=== PATIENT | female | born 1935 | race Caucasian/White ===

== ENCOUNTER 2017-12-20 18:17 | Emergency (ER) | payer MEDICARE, OTHER ==
[~2017-12-20] VITALS: Ht 160 cm; Wt 67.1 kg
[~2017-12-20 18:17] MED LIST: AMLODIPINE BESYL5 MG PO; ASPIRIN EC81 MG PO; DAILY VITAMIN1 EAC2 PO; LEVOTHYROXINE88 MCG PO; MAGNESIUM OXID400 MG PO; OMEGA-31000 MG PO; OMEPRAZOLE20 MG PO; POTASSIUM CHLO10 MEQ PO; SIMVASTATIN20 MG PO; VITAMIN D-32000 UNIT PO
== END 2017-12-20 21:49 | disposition home or self-care (01) ==
LOC: ED 18:17
DX: K52.9 Noninfective gastroenteritis and colitis, unspecified (principal); I10 Essential (primary) hypertension; Z87.891 Personal history of nicotine dependence; Z88.8 Allergy status to other drugs, medicaments and biological substances; Z79.82 Long term (current) use of aspirin; Z79.899 Other long term (current) drug therapy
CPT/HCPCS: 80053; 81001; 85025; 96360; 96361; 99284; J7040

== ENCOUNTER 2017-12-31 19:26 | Inpatient (IN) | payer MEDICARE, OTHER ==
[~2017-12-31] VITALS: Ht 160 cm; Wt 69.1 kg
--- OUTSIDE RECORDS SUMMARY | ~2017-12-31 | XMS | Clinical Summary ---
Demographics + + + | Address | [address] | | | [place] [address] | + + + | Home Phone | | + + + | Preferred Language | Unknown | + + + | Marital Status | | + + + | Judaism Affiliation | 1041 | + + + | Race | Unknown | + + + | Ethnic Group | Unknown | + + + Author + + + | Author | [facility] | | | and [place] | + + + | Organization | [facility] | | | and [place] | + + + | Address | Unknown | + + + | Phone | Unavailable | + + + Support + + + + + | Name | Relationship | Address | Phone | + + + + + | Ana Terrazas | ECON | [address] | | | | | [place] [address] | | + + + + + Care Team Providers + +------+ + | Care Manager Product Name | Role | Phone | + [...] | | | + + +--------+---------+------+------+-------+ | [place] 3 1000 MG | Take 1,000 mg [...] | | tissue, and skin, noseProblem 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
--- OUTSIDE RECORDS SUMMARY | ~2017-12-31 | XMS | Clinical Summary ---
Demographics + + + | Address | [address] | | | [place] [address] | + + + | Home Phone | | + + + | Preferred Language | Unknown | + + + | Marital Status | | + + + | Confucianism Affiliation | 1041 | + + + | Race | Unknown | + + + | Ethnic Group | Unknown | + + + Author + + + | Author | [facility] | | | and [place] | + + + | Organization | [facility] | | | and [place] | + + + | Address | Unknown | + + + | Phone | Unavailable | + + + Support + + + + + | Name | Relationship | Address | Phone | + + + + + | Ana Terrazas | ECON | [address] | | | | | [place] [address] | | + + + + + Care Team Providers + +------+ + | Care Supervisory Cbp Officer Name | Role | Phone | [...] | | | + + +--------+---------+------+------+-------+ | [place] 3 1000 MG | Take 1,000 mg [...] | | tissue, and skin, 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
--- OUTSIDE RECORDS SUMMARY | ~2017-12-31 | XMS | Clinical Summary ---
Demographics + + + | Address | [address] | | | [place] [address] | + + + | Home Phone | | + + + | Preferred Language | Unknown | + + + | Marital Status | Single | + + + | Methodist Affiliation | Unknown | + + + [...] Team Providers + +------+ + | Care Social Sciences Professor Name | Role | Phone | + +------+ + | No Pcp Per Patient | PP | Unavailable | + +------+ + Source Comments TON is fully live on both [facility] and [facility] InPatient.[facility] Allergies No Known Allergies Current Medications [...] | | | + +--------+ +--------+-------+---------+ | [facility] | [facility] | xxxxxxxxx | Agency | | | [...] | Self | [birth year] | Home: | [address] | | | al/Fam | | 1935 | +- | [place] | | | [place] | | | [address] | | + +--------+ +--------+ + + | ETHEL SANFORD | Medica | Self | [birth year] | Home: | [address] | | | re | | 1935 | +- | [place] | | | Recurr | | | [address] | | | | ing | | | | | + +--------+ +--------+ + +"
--- OUTSIDE RECORDS SUMMARY | ~2017-12-31 | XMS | Clinical Summary ---
Demographics + + + | Address | [address] | | | [place] [address] | + + + | Home Phone | | + + + | Preferred Language | Unknown | + + + | Marital Status | | + + + | Jehovah'S Witness Affiliation | 1041 | + + + | Race | Unknown | + + + | Ethnic Group | Unknown | + + + Author + + + | Author | [facility] | | | and [place] | + + + | Organization | 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
--- OUTSIDE RECORDS SUMMARY | ~2017-12-31 | XMS | Clinical Summary ---
Demographics + + + | Address | [address] | | | [place] [address] | + + + | Home Phone [...] Team Providers + +------+ + | Care Scientific Director Name | Role | Phone | [...] + +-------+---------+------+------+-------+ Active Problems Not on file Social History + +-------+ +--------+------+ | Tobacco [...] filefrom Last 3 Months Insurance + +--------+ +------+-------+ + | Payer | Benefi | Subscriber | Type | Phone | Address | | | t Plan | ID | | | | | | / | | | | | | | Group | | | | | + +--------+ +------+-------+ + | MEDICARE | MEDICA | [id number] | | | [address] | | | RE | | | | [place] [phone] | | | IP-OP | | | | | + +--------+ +------+-------+ + | [facility] | YELLOW | [phone] | | | | | PLANS | [...] | Self | [birth year] | Home: | [address] | | | al/Fam | | 7 | [phone] | [place] [address] | | | [place] | | | 0 | | + +--------+ +--------+ + +
--- OUTSIDE RECORDS SUMMARY | ~2017-12-31 | XMS | Clinical Summary ---
Demographics + + + | Address | [address] | | | [place] [address] | + + + | Home Phone | | + + + | Preferred Language | Unknown | + + + | Marital Status | Single | + + + | Mandaen Affiliation | Unknown | + + + [...] Team Providers + +------+ + | Care Forestry Crew Chief Name | Role | Phone | + +------+ + | No Pcp Per Patient | PP | Unavailable | + +------+ + Source Comments TON is fully live on both [facility] and [facility] InPatient.[facility] Allergies No Known Allergies Current [...] | | | + +--------+ +--------+-------+---------+ | [facility] | [facility] | xxxxxxxxx | Agency | | | [...] | Self | [birth year] | Home: | [address] | | | al/Fam | | 1935 | +- | [place] | | | [place] | | | [address] | | + +--------+ +--------+ + + | ETHEL SANFORD | Medica | Self | [birth year] | Home: | [address] | | | re | | 1935 | +- | [place] | | | Recurr | | | [address] | | | | ing | | | | | + +--------+ +--------+ + +"
--- OUTSIDE RECORDS SUMMARY | ~2017-12-31 | XMS | Clinical Summary ---
Demographics + + + | Address | [address] | | | [place] [address] | + + + | Home Phone | | + + + | Preferred Language | Unknown | + + + | Marital Status | Single | + + + | Orthodox Affiliation | Unknown | + + + [...] Team Providers + +------+ + | Care Photocopy Operator Name | Role | Phone | + [...] +------+-------+ + | MEDICARE | MEDICA | [id number] | | | [address] | | | RE | | | | [place] [phone] | | | IP-OP | | | | | + +--------+ +------+-------+ + | [facility] | YELLOW | [phone] | | | | | PLANS | [...] | Self | [birth year] | Home: | [address] | | | al/Fam | | 7 | [phone] | [place] [address] | | | [place] | | | 0 | | + +--------+ +--------+ + +
--- OUTSIDE RECORDS SUMMARY | ~2017-12-31 | XMS | Clinical Summary ---
Demographics + + + | Address | [address] | | | [place] [address] | + + + | Home Phone | | + + + | Preferred Language | Unknown | + + + | Marital Status | Single | + + + | Yarsanism Affiliation | Unknown | + + + [...] Team Providers + +------+ + | Care Abatement Worker Name | Role | Phone | + +------+ + | No Pcp Per Patient | PP | Unavailable | + +------+ + Source Comments TON is fully live on both [facility] and [facility] InPatient.[facility] Allergies No Known Allergies Current [...] | | | + +--------+ +--------+-------+---------+ | [facility] | [facility] | xxxxxxxxx | Agency | | | [...] | Self | [birth year] | Home: | [address] | | | al/Fam | | 1935 | +- | [place] | | | [place] | | | [address] | | + +--------+ +--------+ + + | ETHEL SANFORD | Medica | Self | [birth year] | Home: | [address] | | | re | | 1935 | +- | [place] | | | Recurr | | | [address] | | | | ing | | | | | + +--------+ +--------+ + +"
--- OUTSIDE RECORDS SUMMARY | ~2017-12-31 | XMS | Clinical Summary ---
Demographics + + + | Address | [address] | | | [place] [address] | + + + | Home Phone | | + + + | Preferred Language | Unknown | + + + | Marital Status | Single | + + + | Restorationist Affiliation | Unknown | + + + [...] Team Providers + +------+ + | Care Hot Plate Plywood Press Laborer Name | Role | Phone | + [...] +------+-------+ + | MEDICARE | MEDICA | [id number] | | | [address] | | | RE | | | | [place] [phone] | | | IP-OP | | | | | + +--------+ +------+-------+ + | [facility] | YELLOW | [phone] | | | | | PLANS | [...] | Self | [birth year] | Home: | [address] | | | al/Fam | | 7 | [phone] | [place] [address] | | | [place] | | | 0 | | + +--------+ +--------+ + +
--- NOTE | 2017-12-31 23:00 | NUR ---
HANDOFF REPORT RECEIVED FROM LORENE VILLARREAL. PT TO ARRIVE TO MS VIA STRETCHER ON ROOM AIR.
--- NOTE | 2017-12-31 23:23 | NUR ---
PT ARRIVED TO FLOOR VIA STRETCHER. PT DENIES PAIN, NAUSEA, SOB. ADMISSION QUESTIONS COMPLETE. PT DENIES NEEDS AT THIS TIME. CALL LIGHT WITHIN REACH, PT AGREES TO USE. PT ORIENTED TO ROOM.
--- NOTE | 2018-01-01 | NUR ---
MD PHONED TO VERIFY POTASSIUM CONCENTRATION IN ORDERED FLUIDS, NEW ORDERS OBTAINED, READ BACK TO VERIFY. TELE PHARMACY FAXED ORDER, [employer] TO MIX IVF.
--- NOTE | 2018-01-01 00:25 | NUR ---
PT ASSESSMENT COMPLETE AT THIS TIME, PT DENIES NAUSEA. BOWEL TONES ACTIVE X 4, ABD SOFT, NON-TENDER W PALPATION. ALERT AND ORIENTED X 3. IV FLUSHED WNL, CALCIUM GLUCONATE INFUSING ORDERED ON IV PUMP. PT DENIES TOILETING NEEDS, PT VERBALIZES UNDERSTANDING TO USE CALL LIGHT BEFORE GETTING OUT OF BED. PT GIVEN DRINK OF ICE WATER. CALL LIGHT IN LAP. LIGHTS OFF IN ROOM.
--- NOTE | 2018-01-01 01:33 | NUR ---
IN PT ROOM FOR MEDICATION ADMINISTRATION, PT APPEARS TO BE SLEEPING, EYES CLOSED, BREATHING NON-LABORED. IVF INFUSING WNL. CALL LIGHT IN LAP.
--- NOTE | 2018-01-01 03:27 | NUR ---
1 PA TO THE BEDSIDE COMMODE AND BACK TO BED. CALL LIGHT AND BED SIDE TABLE IN REACH. NO OTHER NEEDS AT THIS TIME.
--- NOTE | 2018-01-01 03:41 | NUR ---
CHECKED ON PT, APPEARS TO BE SLEEPING, EYES CLOSED, RR 16, IVF INFUSING. HR 67, ON TELE 4.
--- NOTE | 2018-01-01 05:49 | NUR ---
PT ASSESSMENT COMPLETE. PT DENIES NAUSEA. SBA TO BSC FOR VOID AND BACK TO BED. BOWEL TONES ACTIVE X 4, ABD SOFT, NON-TENDER W PALPATION. IVF WITH KCL INFUSING RIGHT AC WNL. VITALS STABLE. CALL LIGHT IN LAP. LIGHTS OFF IN ROOM. NO REQUESTS AT THIS TIME.
--- NOTE | 2018-01-01 05:53 | NUR ---
PT DENIES NAUSEA THROUGHOUT SHIFT, NO EMESIS OR BM THIS SHIFT. STOOL SAMPLE NEEDED. IVF WITH 40 KCL INFUSING WNL. PT ON TELE 4, NSR. SBA TO BSC FOR QS VOIDS. BOWEL TONES ACTIVE X 4, ABD SOFT, NON-TENDER W PALPATION. PT ORIENTED X 3, USING CALL LIGHT APPROPRIATELY. CONTACT PRECAUTIONS PENDING CDIFF RESULTS WHEN SAMPLE OBTAINED.
--- NOTE | 2018-01-01 08:20 | NUR ---
CT CALLED TO VERIFY WHEN IT WOULD BE DONE AND WHEN TO ADMINISTER GASTROGRAFIN. PT UP TO RESTOOM WITH SMALL AMT LIQ STOOL. SAMPLE LABELED AND SENT.PT DENIES NAUSEA ATT.
--- NOTE | 2018-01-01 08:49 | NUR ---
PT IN BED AWAKE. ELEVATED FOR ADMINISTERATION OF GASTRO. PT TOLERATED WELL BUT STATED SHE WOULD HAVE TO HAVE MORE LIQ STOOL AFTER DRINKING THAT. PT DENIES NAUSEA OR PAIN.
--- NOTE | 2018-01-01 09:57 | NUR ---
PT DECLINED SHOWER AND BEDBATH. PT STATED SHE SHOWERED BEFORE SHE CAME IN LAST NIGHT AND DOES NOT FEEL WELL TODAY. PT GIVEN A WET WASHCLOTH FOR HER FACE, DEODORANT, AND SUPPLIES TO BRUSH HER TEETH. ADVISED TO LET AUTOMOBILE RENTAL REPRESENTATIVE KNOW IF SHE CHANGES HER MIND ABOUT HAVING A SHOWER.
[2018-01-01] MEDS ORDERED: ROSUVASTATIN CAL5 MG PO (10:14)
[2018-01-01] MEDS ORDERED: DIPHENOXYLATE-1 EACH PO (10:17)
[2018-01-01] MEDS ORDERED: KLOR-CON 1010 MEQ PO (10:17)
--- NOTE | 2018-01-01 11:25 | NUR ---
PT ASSISTED UP TO BEDSIDE COMMODE PT HAD SMALL EMESIS, AND SMALL LIQUID/MUCUS STOOL. THEN ASSISTED INTO PRECAUTIONS TO TRANSFER TO CT
--- NOTE | 2018-01-01 11:42 | NUR ---
NOTIFIED OF CRITICAL LAB VALUE LACTIC ACID 3.5.
--- NOTE | 2018-01-01 11:56 | NUR ---
PT BACK TO FLOOR AND GIVEN ZOFRAN AND MG AND PROTONIX. PT STILL UNABLE TO SWALLOW ORAL MEDS DUE TO NAUSEA. ALERTED DR AND HE IS CHANGING TO IV.
--- NOTE | 2018-01-01 11:57 | NUR ---
PT HAS CRITICAL LACTIC AND MG AND WILL BE TRANSFERED TO UNIT.
--- NOTE | 2018-01-01 12:00 | NUR ---
82 YR OLD FEMALE PATIENT ADMITTED TO CCU FROM MEDICAL FLOOR WITH DX OF GASTRITIS, NAUSEA, VOMITING, DIARRHEA. 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 UPON ADMIT TO CCU PATIENT IS ALERT ORIENTED, COOPERATIVE. DENIES PAIN. IS PALE, IS IN ISOLATION. PATIENT GRANDDAUGHTER AT BEDSIDE. IV STARTED TO LEFT WRIST AND LEFT FOREARM.
--- NOTE | 2018-01-01 12:45 | NUR ---
BOLUS OF LR HUNG, SECOND MG RIDER HUNG, FLAGYL AND CIPRO HUNG PER ORDERS. TAKING FEW SIPS OF WATER.
--- NOTE | 2018-01-01 15:50 | NUR ---
DR. DRISCOLL UPDATED ON PATIENT CONDITION. NO FUTHER ORDERS.
[2018-01-01] MEDS ORDERED: PSYLLIUM HUSK1 GM MISC (17:18)
[2018-01-01] MEDS ORDERED: CALCIUM 600 +1 EAC3 PO (17:26)
--- NOTE | 2018-01-01 17:28 | NUR ---
MED REC COMPLETE WITH [facility] REFILL RECORDS.
--- NOTE | 2018-01-01 17:37 | NUR ---
sitting up in bed taking sherbet. DENIES NAUSEA OR PAIN.
--- NOTE | 2018-01-01 18:23 | EKG ---
[facility] [address] [place], [place] [address] Signed Normal sinus rhythm Normal ECG No previous ECGs available Confirmed by ALIYAH DRISCOLL DO ([id number]) on 01/01/2018 6:22:52 PM Electronically Signed By: ALIYAH DRISCOLL DO 01/01/18 1823 PATIENT NAME: ETHEL [place] Electrocardiogram DATE OF : 37 PHYSICIAN: ALIYAH DRISCOLL DO REPORT #: [id number] REPORT IS CONFIDENTIAL AND NOT TO BE RELEASED WITHOUT AUTHORIZATION
--- NOTE | 2018-01-01 20:21 | NUR ---
AWAKE WATCHING TV, DENIES NAUSEA BUT STATES HAS LITTLE INTEREST IN FOOD AT THIS TIME. TOLD PT THAT WAS OK AND THAT RESTING GI TRACT IS GOOD FOR NOW.
--- NOTE | 2018-01-01 20:50 | NUR ---
IN ROOM TO ADMINISTER FLAGYL, HELPED PT TO COMMODE. SHE WILL CALL WHEN FINISHED.
--- NOTE | 2018-01-01 22:07 | NUR ---
IS RESTING NOW. WAS COUGHING FEQ 2109, STAES HAD PHLEGM IN THROAT AND THAT IS NOT UNCOMMON FOR HER. BREATH TONES CLEAR AFTER COUGING.
--- NOTE | 2018-01-02 00:49 | NUR ---
AT 0030 ASSISTED PT TO BSC TO VOID. PT STATES SHE STILL FEELS A LITTLE SHAKEY. VS AND ASSESMENT DONE. T 102.6 DR DRISCOLL CALLED. WILL GIVEN PT TYLENOL FOR TEMP. BREATH TONES ESS CLEAR BUT SL COURSE BASES.
--- NOTE | 2018-01-02 00:59 | NUR ---
ADMINISTERED TYLENOL FOR 102.6 TEMP. PT DENIES PAIN BUT IS A LITTLE SHAKY. SHE DENIES FURTHER NEEDS AT THIS TIME.
--- NOTE | 2018-01-02 02:14 | NUR ---
ADMINISTERED IV FLAGYL AND RECHECKED PT'S TEMP. SHE IS AT 99.6 AT THIS TIME. SHE STATES HER GOWN IS DAMP FROM PERSPIRATION, HELPED HER CHANGE INTO A NEW GOWN. SHE DENIES FURTHER NEEDS AT THIS TIME.
--- NOTE | 2018-01-02 02:41 | NUR ---
PT HAD JUST FALLEN ASLEEP AND NOTED SATS DEC TO 97-89%. 02 2L NC APPLIED.
--- NOTE | 2018-01-02 05:07 | NUR ---
HAD BEEN SLEEPING. SATS HIGH 90'S. AWAKENED FOR VS AND ASSESSMENT. UP TO BSC TO VOID AND HAVE LIQ BM. DEAN BEING UP WELL.
--- NOTE | 2018-01-02 06:15 | NUR ---
AWAKENED FOR CHEST X RAY. NO OTHER CHANGES.
--- NOTE | 2018-01-02 07:30 | NUR ---
PT SHIFT REPORT RECEIVED FROM PRODUCTION REPRODUCTION MANAGER RN. PT RESTING IN BED AT THIS TIME. PER REPORT PT URINE OUTPUT IS MINIMAL, BUT WITHIN PARAMETERS. PT BP SOFT 90'S THROUGHTOU THE NIGHT. WILL CONTINUE TO CLOSELY MONITOR.
--- NOTE | 2018-01-02 08:45 | NUR ---
PT RESTING IN BED WATCHING TV. PT ASSESSMENT COMPLETED. BREATH SOUNDS CLEAR. BOWEL TONES ACTIVE. PT SPO2 99% ON RA AT THIS TIME. BOWEL TONES ACTIVE. PT REQUESTING SOMETHING TO EAT. GAVE JELLO WILL MONITOR PT TOLERANCE. PT NOTED TO HAVE SOME GENERALIZED EDEMA THROUGHOUT. WILL CONTINUE TO CLOSELY MONITOR.
--- NOTE | 2018-01-02 10:00 | NUR ---
PT ASSISTED UP TO SAVANNA. PT ATTENDS CHANGED. PT DENIES GETTING INTO CHAIR. SHE IS MUCH MORE COMFORTABLE LAYING IN BED. NO OTHER ISSUES AT THIS TIME. WILL CONTINUE TO CLOSELY MONITOR.
--- NOTE | 2018-01-02 12:45 | NUR ---
PT RESTING IN BED. PT TOLERATING CLEAR LIQUIDS WELL WITH NO NAUSEA. PT WANTS TO TRY SOME SOUP. WILL ORDER AND MONITOR PTS TOELANCE. PT BREATH SOUNDS CLEAR AND PT IS ON RA AT 100% SPO2. NO OTHER ISSUES AT THIS TIME. WILL CONTINUE TO CLOSELY MONITOR.
--- NOTE | 2018-01-02 15:40 | NUR ---
PT UP AND WALKED TO OOM 126 FOR A SHOWER. PT USED FRONT WHEEL WALKER FOR STABILITY AND TOLERATED WELL. THIS RN IN TO HELP PT WITH SHOWER. PT DID MOST OF IT ON HER OWN. NEW GOWN PLACED AND BED LINENS CHANGED. ASSISTED PT BACK TO BED. PT NOW SITTING UP IN BED PLAYING CARDS. PT IS FEELING BETTER THIS EVENING. PT TOELRATED LUNCH AND DENIED NAUSEA. PT DID HAVE A LOOSE BM AFTER DINNER. NO OTHER ISSUES AT THIS TIME. WILL CONTINUE TO CLOSELY MONITOR.
--- NOTE | 2018-01-02 17:17 | NUR ---
PT RESTING IN BED WATCHING TV A THIS TIME. PT HAD VISITORS IN EARLIER TODAY. PT ORDERED DINNER. PT CONTINUES TO DENY NAUSEA/VOMITING. WILL CONTINUE TO CLOSELY MONITOR.
--- NOTE | 2018-01-02 19:00 | NUR ---
PT TEMP UP TO 100.6. PT STATES SHE DOES NOT FEEL LIKE SHE IS HAVING A FEVER. GAVE TYLENOL 500. PT ASSISTED UP TO CAMMODE. PT TOELRATED WELL. ASSISSTED BACK TO BED WITH NO ISSUES. WILL CONTINUE TO CLOSELY MONITOR.
--- NOTE | 2018-01-02 19:38 | NUR ---
BEDSIDE REPORT RECEIVED FROM ELIZABETH RN, PT AWAKE IN BED WATCHING TV. DENIES PAIN/SOB/NAUSEA OR ANY NEEDS. ALERT AND ORIENTED. ORAL TEMP CHECKED-99.9. HR 60'S, RR 24. WILL CONT TO MONITOR.
--- NOTE | 2018-01-02 21:45 | NUR ---
UP TO BSC TO VOID, STEADY ON FEET,NO COMPLAINTS.
--- NOTE | 2018-01-03 00:10 | NUR ---
RESTING WITH EYES CLOSED, HR 60'S, RESP EVEN AND UNLABORED.
--- NOTE | 2018-01-03 02:00 | NUR ---
UP TO BSC TO VOID THEN BACK TO BED, NO REQUESTS.
--- NOTE | 2018-01-03 04:20 | NUR ---
UP TO VOID, BACK TO BED. ASSESSMENT DONE.
--- NOTE | 2018-01-03 09:57 | NUR ---
PT PLACED ON TELE #4 AT THIS TIME. PT WILL BE TRANSFERED TO THE M/S UNIT AT SOMEPOINT TODAY.
--- NOTE | 2018-01-03 10:30 | NUR ---
RECEIVED REPORT CHANDLER CCU NURSE. PT TRANSFERED VIA CHAIR. REPORTS NO PAIN. VSS. CALL LIGHT IN REACH. ORIENTED TO ROOM. MAG INFUSING AT THIS TIME. AAOX4.
--- NOTE | 2018-01-03 11:00 | NUR ---
REPORT CALLED TO MS NURSE ALL QUESTIONS ANSWERED AT THIS TIME. PT TRANSFERED TO [place] VIA CHAIR. ALL PERSONAL BELONGS SENT WITH PT ALSO AT THIS TIME TO ROOM 119.
--- NOTE | 2018-01-03 13:44 | NUR ---
pt is sitting up in chair with feet elevated and call light in reach. pt has yet to go bathroom since transfering over from CCU, but pt says she will call when she needs to go.
--- NOTE | 2018-01-03 14:35 | NUR ---
CALL LIGHT ANSWERED. SBA TO BATHROOM. VOIDED X1. BACK TO BED. CALL LIGHT IN REACH. DENIES FURTHER NEEDS.
--- NOTE | 2018-01-03 17:35 | NUR ---
pt up in chair. medicaiton given. denies pain. call light in reach.
--- NOTE | 2018-01-03 17:59 | NUR ---
pt is sitting up in chair with feet elevated and call lightin reach. pt did not need anything at the moment
--- NOTE | 2018-01-03 18:37 | NUR ---
SBA TO BATHROOM. TOLERATED WELL. VALL LIGHT IN REACH.
--- NOTE | 2018-01-03 18:37 | NUR ---
TRANSFER FROM CCU TODAY. NO PAIN, SBA W/ FWW. REG DIET TOLERATING WELL. SCD'S WHEN IN BED. BLOOD CULTURES PENDING. IV LEFT WRIST FLUSHES WELL.
--- NOTE | 2018-01-03 19:10 | NUR ---
shift report received. patient resting in recliner. no needs at this time. call light in lap.
--- NOTE | 2018-01-03 21:45 | NUR ---
IN ROOM FOR PT. ASSESSMENT/MEDS. PT IN BED RESTING COMFORTABLY. HEART SOUNDS HEARD. LS CLEAR. PULSES EQUAL BILATERALLY. BT ACTIVE IN ALL QUADRANTS, DENIES TENDERNESS/PAIN WITH PALPATION. DENIES ANY N/V. LAST BM TODAY. IV REMAINS SL. NO FURTHER REQUESTS AT THIS TIME. SCD'S IN PLACE. CALL LIGHT WITHIN REACH. PT TOLERATING DIET WELL.
--- NOTE | 2018-01-03 21:57 | NUR ---
CHARGE NURSE ROUNDING NOTE: TELE #[address], NO C/O CP, NO REQUESTS. PT IN RECLINER. CALL LIGHT WITHIN HANDS REACH
--- NOTE | 2018-01-03 23:47 | NUR ---
HELPED PT TO THE BATHROOM AND BACK TO BED WITH HER FWW. SCD'S BACK ON . BEDSIDE TABLE AND CALL LIGHT IN REACH. PT NEEDS NOTHING ELSE AT THIS TIME.
--- NOTE | 2018-01-04 01:00 | NUR ---
PATIENT APPEARS TO BE SLEEPING SOUNDLY. RR 18. TELE IN USE, HR 57. NORMAL SINUS.
--- NOTE | 2018-01-04 05:05 | NUR ---
PT UP TO BATHROOM. PT USES FWW WITH 1 PERSON SBA. PT STEADY WITH WALKER. NO SOB/DIZZINESS OR LIGHT HEADEDNESS. PT VOIDED CLEAR YELLOW URINE. UNABLE TO ASSESS AMOUNT. LS CLEAR. HEART SOUNDS HEARD, SINUS RHYTHM. BT ACTIVE IN ALL QUADRANTS, NO TENDERNESS/TEETEE WITH PALPATION OF ABDOMEN. NO FURTHER REQUESTS AT THIS TIME. CALL LIGHT WITHIN REACH. BED IN LOW POSITION.
--- NOTE | 2018-01-04 06:03 | NUR ---
PATIENT SLEPT MOST OF THE SHIFT. NO NAUSEA OR PAIN. PATIENT TOLERATED REGULAR DIET. TELE #5, HR 55-65 AT REST. SBA W/FWW. PATIENT REQUIRES EDUCATION ON FWW USE. SCDS.
--- NOTE | 2018-01-04 07:15 | NUR ---
RECEIVED REPORT FROM DAY SHIFT RN. PT A/O IN BED. DENIES NEEDS. CALL LIGHT IN REACH.
--- NOTE | 2018-01-04 07:59 | NUR ---
PATIENT RESTING IN BED, CALL LIGHT IN REACH. PATIENT REFUSED AM CARE AND REQUESTED TO SLEEP A LITTLE LONGER. THIS LUNG SPLITTER SET UP AM CARE FOR PATIENT IN BATHROOM FOR A LATER TIME. NO OTHER NEEDS AT THIS TIME.
--- NOTE | 2018-01-04 08:58 | NUR ---
PATIENT RESTING IN BED, PATIENT REQUESTING TO STAY IN BED AT THIS TIME. NO OTHER NEEDS.
[2018-01-04] MEDS ORDERED: CIPROFLOXACIN500 MG PO (09:07)
[2018-01-04] MEDS ORDERED: METRONIDAZOLE500 MG PO (09:08)
--- NOTE | 2018-01-04 10:00 | NUR ---
PT WALKING HALLS WITH PT AT THIS TIME.
--- NOTE | 2018-01-04 11:12 | NUR ---
THIS DIRECTOR NICU REMOVED PATIENT'S IV WITH RN'S PERMISSION. TIP INTACT, NO REDNESS OR SWELLING AT INSERTION SITE. PATIENT IN BATHROOM, OCCUPATIONAL THERAPY IN ROOM TO ASSIST PATIENT WITH DRESSING. RN IN ROOM. NO OTHER NEEDS AT THIS TIME.
== END 2018-01-04 12:00 | disposition home or self-care (01) | DRG 872 ==
LOC: ED 19:26 → MS 19:28 → CCU 01-01 12:10 → MS 01-03 11:12
PROVIDERS: ADMIT Student in an Organized Health Care Education/Training Program
DX: A41.51 Sepsis due to Escherichia coli [E. coli] (principal); K80.20 Calculus of gallbladder without cholecystitis without obstruction; E83.42 Hypomagnesemia; I10 Essential (primary) hypertension; E03.9 Hypothyroidism, unspecified; K52.9 Noninfective gastroenteritis and colitis, unspecified; E83.51 Hypocalcemia; E87.6 Hypokalemia; Z88.8 Allergy status to other drugs, medicaments and biological substances; Z79.82 Long term (current) use of aspirin; Z79.899 Other long term (current) drug therapy
CPT/HCPCS: 36415; 71045; 74176; 74177; 80048; 80053; 81001; 82330; 82652; 82947; 83605; 83735; 84100; 85025; 87040; 87045; 87046; 87077; 87186; 87493; 93005; 93010; 93306; 96361; 96374; 96375; 97116; 97161; 97165; 97535; 99285; J0610; J0744; J1650; J2405; J2765; J3475; J3480; J7030; J7060; J7070; J7120; Q9967

== ENCOUNTER 2018-02-01 12:30 | Emergency (ER) | payer MEDICARE, OTHER ==
[~2018-02-01] VITALS: Ht 160 cm; Wt 69.1 kg
--- OUTSIDE RECORDS SUMMARY | ~2018-02-01 | XMS | Clinical Summary ---
Demographics + + + | Address | [address] | | | [place] [address] | + + + | Home Phone | | + + + | Preferred Language | Unknown | + + + | Marital Status | Single | + + + | Buddhist Affiliation | Unknown | + + + | Race | Unknown | + + + | Ethnic Group | Unknown | + + + Author + + + | Author | [facility] | + + + | Organization | [facility] | + + + | Address | Unknown | + + + | Phone | Unavailable | + + + Support + + +---------+ + | Name | Relationship | Address | Phone | + + +---------+ + | Ana Ivory | ECON | Unknown | | + + +---------+ + | Mateo Sanchez | ECON | Unknown | | + + +---------+ + Care Team Providers + +------+ + | Care Partner Management Consultant Name | Role | Phone | + +------+ + PP | Unavailable | + +------+ + Allergies No Known Allergies Current Medications + + +-------+---------+------+------+-------+ | Prescription | Sig. | Disp. | Refills | Star | End | Statu | | | | | | t | Date | s | | | | | | Date | | | + + +-------+---------+------+------+-------+ | omeprazole | Take 20 mg by mouth | | | | | Activ | | (PRILOSEC) 20 MG | every morning before | | | | | e | | capsule | breakfast. | | | | | | + + +-------+---------+------+------+-------+ | simvastatin | Take 20 mg by mouth | | | | | Activ | | (ZOCOR) 20 MG tablet | nightly. | | | | | e | + + +-------+---------+------+------+-------+ | potassium chloride | Take 10 mEq by mouth | | | | | Activ | | (K-DUR) 10 MEQ | daily. | | | | | e | | tablet | | | | | | | + + +-------+---------+------+------+-------+ | amLODIPine | Take 5 mg by mouth 2 | | | | | Activ | | (NORVASC) 5 MG | (two) times daily. | | | | | e | | tablet | | | | | | | + + +-------+---------+------+------+-------+ | aspirin 81 MG EC | Take 81 mg by mouth | | | | | Activ | | tablet | daily with | | | | | e | | | breakfast. | | | | | | + + +-------+---------+------+------+-------+ | levothyroxine | Take 75 mcg by mouth | | | | | Activ | | (SYNTHROID) 75 MCG | every morning | | | | | e | | tablet | before breakfast. | | | | | | + + +-------+---------+------+------+-------+ | magnesium oxide | Take 400 mg by mouth | | | | | Activ | | (MAG-OX) 400 MG | daily. Take 2 | | | | | e | | tablet | tablets by mouth | | | | | | | | every day | | | | | | + + +-------+---------+------+------+-------+ | Calcium | Take 1 tablet by | | | | | Activ | | Carb-Cholecalciferol | mouth 2 (two) times | | | | | e | | (CALCIUM-VITAMIN D) | daily. | | | | | | | 600-400 MG-UNIT | | | | | | | | TABS | | | | | | | + + +-------+---------+------+------+-------+ Active Problems Not on file Encounters +--------+ + + + + | Date | Type | Specialty | Care Team | Description | +--------+ + + + + | 01/02/ | Ancillary | | Javier Cruz DO | Bacteremia | | 2017 | Procedure | | | | +--------+ + + + + | 01/02/ | Ancillary | | Javier Cruz DO | Bacteremia | | 2017 | Orders | | | | +--------+ + + + + from Last 3 Months Social History + +-------+ +--------+------+ | Tobacco Use | Types | Packs/Day | Years | Date | | | | | Used | | + +-------+ +--------+------+ | Never Assessed | | | | | + +-------+ +--------+------+ + + + | Sex Assigned at | Date Recorded | | | | + + + | Not on file | | + + + Last Filed Vital Signs + + + + | Vital Sign | Reading | Time Taken | + + + + | Blood Pressure | 124/61 | 07/30/2015 4:20 AM PDT | + + + + | Pulse | 51 | 07/30/2015 4:20 AM PDT | + + + + | Temperature | 36.6 C (97.8 F) | 07/30/2015 4:20 AM PDT | + + + + | Respiratory Rate | 16 | 07/30/2015 4:20 AM PDT | + + + + | Oxygen Saturation | 96% | 07/30/2015 4:20 AM PDT | + + + + | Inhaled Oxygen | - | - | | Concentration | | | + + + + | Weight | 61.2 kg (135 lb) | 07/29/2015 12:00 PM PDT | + + + + | Height | 160 cm (5' 3") | 07/29/2015 12:00 PM PDT | + + + + | Body Mass Index | 23.91 | 07/29/2015 12:00 PM PDT | + + + + Plan of Treatment + + + + + | Health Maintenance | Due Date | Last Done | Comments | + + + + + | Vaccine: | | | | | Dtap/Tdap/Td (1 - | 6 | | | | Tdap) | | | | + + + + + | Vaccine: Zoster (1 | | | | | of 2) | 7 | | | + + + + + | DEXA SCAN SCREENING | | | | | | 2 | | | + + + + + | Vaccine: | | | | | Pneumococcal 65+ | 2 | | | | Low/Medium Risk (1 | | | | | of 2 - PCV13) | | | | + + + + + | Vaccine: Influenza | | | | | (#1) | 8 | | | + + + + + Procedures + +--------+ + + + | Procedure Name | Priori | Date/Time | Associated Diagnosis | Comments | | | ty | | | | + +--------+ + + + | ECHO OUTSIDE | Routin | 01/02/2018 | Bacteremia | Results for this | | INTERPRETATION | e | 3:02 PM | | procedure are in the | | STANDARD | | PDT | | results section. | + +--------+ + + + from Last 3 Months Results ECHO outside interpretation standard (01/02/2018 3:02 PM) + + + | Impressions | Performed At | + + + | 1. Left ventricular systolic function is hyperdynamic with an | [facility] | | estimated EF of >70%. | RADIOLOGY | + + + + + + | Narrative | Performed At | + + + | Patient Name: Salma Montoya Date of : 1935 | [facility] | | Performing Physician: DOMINGUEZ CASTELLANO | RADIOLOGY | | MD | | | INDICATIONS Inpatient echo: Bacteremia | | | CONCLUSIONS 1. Left ventricular systolic function is | | | hyperdynamic with an estimated EF of >70%. FINDINGS -------- ECG | | | rhythm: Sinus rhythm. Study: A 2-dimensional transthoracic | | | echocardiogram with m-mode, spectral and color flow Doppler was | | | perfomed. Study: This was a technically adequate study. Left | | | Ventricle: Left ventricular systolic function is hyperdynamic with an | | | estimated EF of >70%. Left Ventricle: The left ventricle cavity size | | | is normal. Left Ventricle: Left ventricular wall thickness is | | | normal. Left Ventricle: No regional wall motion abnormalities. | | | Left Ventricle: The diastolic filling pattern is normal for the age of | | | the patient. Right Ventricle: The right ventricle is normal in size. | | | Left Atrium: The left atrium is normal in size. Right Atrium: The | | | right atrium is normal in size. Aortic Valve: The aortic valve | | | appears to be trileaflet. Aortic Valve: There is mild aortic valve | | | sclerosis without stenosis. Aortic Valve: There is no evidence of | | | aortic regurgitation. Mitral Valve: There is none/trace mitral | | | regurgitation. Mitral Valve: Mild mitral annular calcification | | | present. Tricuspid Valve: The tricuspid valve appears structurally | | | normal. Tricuspid Valve: Trace tricuspid regurgitation present. | | | Tricuspid Valve: There is no evidence of pulmonary hypertension. | | | Tricuspid Valve: The right ventricular systolic pressure (pulmonary | | | artery systolic pressure), as measured by Doppler, is 24.74mmHg. | | | Tricuspid Valve: The poor TR signal prevents accurate estimation of | | | pulmonary pressures. Pulmonic Valve: The pulmonic valve is normal. | | | Pulmonic Valve: Trace pulmonic regurgitation. Pericardium: There | | | is no pericardial effusion. IVC/Hepatic Veins: The IVC is normal size | | | (1.5-2.5cm) and collapses >50% with sniff, consistent with central | | | venous pressures of 5-10mmHg. Aorta: The aortic root, ascending aorta | | | and aortic arch are normal. Mass: No mass visualized Thrombus: No | | | clot visualized Thrombus: No vegetation visualized. Septum: No ASD | | | observed. Septum: No VSD observed. MEASUREMENTS | | | Ao asc: 3.09 cm Ao Diam: 2.[address] junct: 2.82 cm | | | IVC: 1.84 cm LA Diam: 4.11 cm LA Major: 5.37 cm | | | EDV(Teich): 79.39 ml IVSd: 1.03 cm LVIDd: 4.21 cm | | | LVPWd: 0.98 cm LVOT Area: 3.07 cm2 LVOT Diam: 1.97 cm | | | %FS: 34.50 % EF(Teich): 63.98 % ESV(Teich): 28.59 ml | | | LVIDs: 2.76 cm SV(Teich): 50.79 ml RA Major: 4.60 cm RV | | | Major: 6.10 cm RVIDd: 2.59 cm TV Rayne Diam: 3.45 cm Ao | | | Root: 2.98 cm Ao Diam SVals: 2.96 cm LVEF MOD A2C: 78.02 | | | % SV MOD A2C: 54.23 ml LVEF MOD A4C: 72.76 % SV MOD | | | A4C: 47.76 ml EF Biplane: 76.17 % LVEDV MOD BP: 70.77 ml | | | LVESV MOD BP: 16.86 ml LVEDV MOD A2C: 69.50 ml LVLd | | | A2C: 7.12 cm LVEDV MOD A4C: 65.65 ml LVLd A4C: 7.86 cm | | | LVESV MOD A2C: 15.27 ml LVLs A2C: 6.12 cm LVESV MOD A4C: | | | 17.88 ml LVLs A4C: 6.25 cm LAESV(A-L): 40.47 ml LAESV | | | Index (A-L): 24.09 ml/m2 LAAs A2C: 15.41 cm2 LAESV A-L | | | A2C: 37.89 ml LALs A2C: 5.32 cm LAAs A4C: 16.46 cm2 | | | LAESV A-L A4C: 41.83 ml LALs A4C: 5.50 cm RAAs: 12.37 | | | cm2 RAESV A-L: 25.80 ml RAESV MOD: 25.58 ml RALs: 5.03 | | | cm TAPSE: 2.44 cm AV maxP.42 mmHg AV meanP.02 | | | mmHg AV Vmax: 1.68 m/s AV Vmean: 1.15 m/s AV VTI: 30.20 | | | cm NORAH Vmax: 3.07 cm2 NORAH (VTI): 3.25 cm2 LVOT maxPG: | | | 11.40 mmHg LVOT meanP.46 mmHg LVSI Dopp: 58.44 ml/m2 | | | LVSV Dopp: 98.19 ml LVOT Vmax: 1.68 m/s LVOT Vmean: 1.07 | | | m/s LVOT VTI: 31.94 cm MV A Billy: 1.00 m/s MV Dec | | | Kay: 4.66 m/s2 MV DecT: 241.04 ms MV E Billy: 1.12 m/s | | | MV E/A Ratio: 1.11 MV PHT: 69.90 ms MVA By PHT: 3.14 | | | cm2 Septal e': 0.07 m/s Septal E/e': 15.78 Lateral e': | | | 0.07 m/s Lateral E/e': 15.87 RAP: 5 mmHg RVSP: 24.73 | | | mmHg TR maxP.73 mmHg TR Vmax: 2.22 m/s Director Statistical Programming: | | | DH Authenticated by: DOMINGUEZ CASTELLANO MD Report Date/Time: -- | | | [id number] | | + + + + + | Procedure Note | + + | [place], Rad Results In - 01/02/2018 8:16 PM PDT Patient Name: Tracy Montoya of | | : 1935ccession: [id number] Physician: DOMINGUEZ CASTELLANO MD | | INDICATIONS Inp | | atient echo: BacteremiaCONCLUSIONS 1. Left ventricular systolic function is | | hyperdynamic with an estimated EF of >70%.FINDINGS--------ECG rhythm: Sinus | | rhythm.Study: A 2-dimensional transthoracic echocardiogram with m-mode, spectral and | | color flow Doppler was perfomed. Study: This was a technically adequate study.Left | | Ventricle: Left ventricular systolic function is hyperdynamic with an estimated EF of | | >70%. Left Ventricle: The left ventricle cavity size is normal. Left Ventricle: Left | | ventricular wall thickness is normal. Left Ventricle: No regional wall motion | | abnormalities. Left Ventricle: The diastolic filling pattern is normal for the age of | | the patient.Right Ventricle: The right ventricle is normal in size.Left Atrium: The left | | atrium is normal in size.Right Atrium: The right atrium is normal in size. Aortic | | Valve: The aortic valve appears to be trileaflet. Aortic Valve: There is mild aortic | | valve sclerosis without stenosis. Aortic Valve: There is no evidence of aortic | | regurgitation.Mitral Valve: There is none/trace mitral regurgitation. Mitral Valve: Mild | | mitral annular calcification present.Tricuspid Valve: The tricuspid valve appears | | structurally normal. Tricuspid Valve: Trace tricuspid regurgitation present. Tricuspid | | Valve: There is no evidence of pulmonary hypertension. Tricuspid Valve: The right | | ventricular systolic pressure (pulmonary artery systolic pressure), as measured by | | Doppler, is 24.74mmHg. Tricuspid Valve: The poor TR signal prevents accurate estimation | | of pulmonary pressures.Pulmonic Valve: The pulmonic valve is normal. Pulmonic Valve: | | Trace pulmonic regurgitation.Pericardium: There is no pericardial effusion.IVC/Hepatic | | Veins: The IVC is normal size (1.5-2.5cm) and collapses >50% with sniff, consistent with | | central venous pressures of 5-10mmHg.Aorta: The aortic root, ascending aorta and aortic | | arch are normal.Mass: No mass visualizedThrombus: No clot visualized Thrombus: No | | vegetation visualized.Septum: No ASD observed. Septum: No VSD | | observed.MEASUREMENTS Ao asc: 3.09 cmAo Diam: 2.[address] junct: 2.82 | | cmIVC: 1.84 cmLA Diam: 4.11 cmLA Major: 5.37 cmEDV(Teich): 79.39 mlIVSd: 1.03 | | cmLVIDd: 4.21 cmLVPWd: 0.98 cmLVOT Area: 3.07 [id number] Diam: 1.97 cm%FS: 34.50 | | %EF(Teich): 63.98 %ESV(Teich): 28.59 mlLVIDs: 2.76 cmSV(Teich): 50.79 mlRA | | Major: 4.60 cmRV Major: 6.10 cmRVIDd: 2.59 cmTV Rayne Diam: 3.45 cmAo Root: 2.98 | | cmAo Diam SVals: 2.96 cmLVEF MOD A2C: 78.02 %SV MOD A2C: 54.23 mlLVEF MOD A4C: | | 72.76 %SV MOD A4C: 47.76 mlEF Biplane: 76.17 %LVEDV MOD BP: 70.77 mlLVESV MOD BP: | | 16.86 mlLVEDV MOD A2C: 69.50 mlLVLd A2C: 7.12 cmLVEDV MOD A4C: 65.65 mlLVLd A4C: | | 7.86 cmLVESV MOD A2C: 15.27 mlLVLs A2C: 6.12 cmLVESV MOD A4C: 17.88 mlLVLs A4C: | | 6.25 cmLAESV(A-L): 40.47 mlLAESV Index (A-L): 24.09 ml/m2LAAs A2C: 15.41 | | [id number] A-L A2C: 37.89 mlLALs A2C: 5.32 cmLAAs A4C: 16.46 [id number] A-L A4C: | | 41.83 mlLALs A4C: 5.50 cmRAAs: 12.37 [id number] A-L: 25.80 mlRAESV MOD: 25.58 | | mlRALs: 5.03 cmTAPSE: 2.44 cmAV maxP.42 mmHgAV meanP.02 mmHgAV Vmax: | | 1.68 m/Miguel Vmean: 1.15 m/Miguel VTI: 30.20 cmAVA Vmax: 3.07 cm2AVA (VTI): 3.25 | | [id number] maxP.40 mmHgLVOT meanP.46 mmHgLVSI Dopp: 58.44 ml/m2LVSV Dopp: | | 98.19 mlLVOT Vmax: 1.68 m/sLVOT Vmean: 1.07 m/sLVOT VTI: 31.94 cmMV A Billy: 1.00 | | m/sMV Dec Kay: 4.66 m/s2MV DecT: 241.04 msMV E Billy: 1.12 m/sMV E/A Ratio: 1.11 | | MV PHT: 69.90 msMVA By PHT: 3.14 aa5Tdlrvi e': 0.07 m/sSeptal E/e': 15.78 | | Lateral e': 0.07 m/sLateral E/e': 15.87 RAP: 5 mmHgRVSP: 24.73 mmHgTR maxPG: | | 19.73 mmHgTR Vmax: 2.22 m/sSonographer: DHAuthenticated by: DOMINGUEZ CASTELLANO | | MDReport Date/Time: -- [id number]:1. Left ventricular systolic | | function is hyperdynamic with an estimated EF of >70%. | | | |MEASUREMENTS | | | |Ao asc: 3.09 cm | |Ao Diam: 2.72 cm | |Ao st junct: 2.82 cm | |IVC: 1.84 cm | |LA Diam: 4.11 cm | |LA Major: 5.37 cm | |EDV(Teich): 79.39 ml | |IVSd: 1.03 cm | |LVIDd: 4.21 cm | |LVPWd: 0.98 cm | |LVOT Area: 3.07 cm2 | |LVOT Diam: 1.97 cm | |%FS: 34.50 % | |EF(Teich): 63.98 % | |ESV(Teich): 28.59 ml | |LVIDs: 2.76 cm | |SV(Teich): 50.79 ml | |RA Major: 4.60 cm | |RV Major: 6.10 cm | |RVIDd: 2.59 cm | |TV Rayne Diam: 3.45 cm | |Ao Root: 2.98 cm | |Ao Diam SVals: 2.96 cm | |LVEF MOD A2C: 78.02 % | |SV MOD A2C: 54.23 ml | |LVEF MOD A4C: 72.76 % | |SV MOD A4C: 47.76 ml | |EF Biplane: 76.17 % | |LVEDV MOD BP: 70.77 ml | |LVESV MOD BP: 16.86 ml | |LVEDV MOD A2C: 69.50 ml | |LVLd A2C: 7.12 cm | |LVEDV MOD A4C: 65.65 ml | |LVLd A4C: 7.86 cm | |LVESV MOD A2C: 15.27 ml | |LVLs A2C: 6.12 cm | |LVESV MOD A4C: 17.88 ml | |LVLs A4C: 6.25 cm | |LAESV(A-L): 40.47 ml | |LAESV Index (A-L): 24.09 ml/m2 | |LAAs A2C: 15.41 cm2 | |LAESV A-L A2C: 37.89 ml | |LALs A2C: 5.32 cm | |LAAs A4C: 16.46 cm2 | |LAESV A-L A4C: 41.83 ml | |LALs A4C: 5.50 cm | |RAAs: 12.37 cm2 | |RAESV A-L: 25.80 ml | |RAESV MOD: 25.58 ml | |RALs: 5.03 cm | |TAPSE: 2.44 cm | |AV maxP.42 mmHg | |AV meanP.02 mmHg | |AV Vmax: 1.68 m/s | |AV Vmean: 1.15 m/s | |AV VTI: 30.20 cm | |NORAH Vmax: 3.07 cm2 | |NORAH (VTI): 3.25 cm2 | |LVOT maxP.40 mmHg | |LVOT meanP.46 mmHg | |LVSI Dopp: 58.44 ml/m2 | |LVSV Dopp: 98.19 ml | |LVOT Vmax: 1.68 m/s | |LVOT Vmean: 1.07 m/s | |LVOT VTI: 31.94 cm | |MV A Billy: 1.00 m/s | |MV Dec Kay: 4.66 m/s2 | |MV DecT: 241.04 ms | |MV E Billy: 1.12 m/s | |MV E/A Ratio: 1.11 | |MV PHT: 69.90 ms | |MVA By PHT: 3.14 cm2 | |Septal e': 0.07 m/s | |Septal E/e': 15.78 | |Lateral e': 0.07 m/s | |Lateral E/e': 15.87 | |RAP: 5 mmHg | |RVSP: 24.73 mmHg | |TR maxP.73 mmHg | |TR Vmax: 2.22 m/s | | | |Director Statistical Programming: ZACK | |Authenticated by: DOMINGUEZ CASTELLANO MD | |Report Date/Time: -- [id number] | | | |IMPRESSION: | |1. Left ventricular systolic function is hyperdynamic with an estimated EF of >70%. | + + + + + + + | Performing | Address | City/State/Zipcode | Phone Number | | Organization | | | | + + + + + | [facility] | [address] | [place] [address] | | + + + + + from Last 3 Months Insurance + +--------+ +------+-------+ + | Payer | Benefi | Subscriber | Type | Phone | Address | | | t Plan | ID | | | | | | / | | | | | | | Group | | | | | + +--------+ +------+-------+ + | MEDICARE | MEDICA | [id number] | | | [address] | | | RE | | | | [place] [phone] | | | IP-OP | | | | | + +--------+ +------+-------+ + | [facility] | YELLOW | [phone] | | | | | PLANS | [place] | | | | | + +--------+ +------+-------+ + + +--------+ +--------+ + + | Guarantor Name | Accoun | Relation to | Date | Phone | Billing Address | | | t Type | Patient | of | | | | | | | | | | + +--------+ +--------+ + + | SALMA MONTOYA | Person | Self [birth year] | Home: | [address] | | | al/Fam | | 1936 | [phone] [place] [address] | | | vianney | | | 1929 | | + +--------+ +--------+ + +
--- OUTSIDE RECORDS SUMMARY | ~2018-02-01 | XMS | Clinical Summary ---
Demographics + + + | Address | [address] | | | [place] [address] | + + + | Home Phone | | + + + | Preferred Language | Unknown | + + + | Marital Status | | + + + | Scientology Affiliation | 1041 | + + + | Race | Unknown | + + + | Ethnic Group | Unknown | + + + Author + + + | Author | [facility] | | | and [place] | + + + | Organization | [facility] | | | and [place] | + + + | Address | Unknown | + + + | Phone | Unavailable | + + + Support + + + + + | Name | Relationship | Address | Phone | + + + + + | Ana Terrazas | ECON | [address] | | | | | [place] [address] | | + + + + + Care Team Providers + +------+ + | Care Escrow Officer Name | Role | Phone | + +------+ + | Gary Pineda PA-C | PP | | + +------+ + Allergies + + + + + + | Active Allergy | Reactions | Severity | Noted | Comments | | | | | Date | | + + + + + + | Atorvastatin | Other (See Comments) | Low | | myalgia | + + + + + + | Epinephrine | Other (See Comments) | | 02/24/20 | Doesn't recall | | | | | 15 | reaction | + + + + + + | Indomethacin | Other (See Comments) | | | Doesn't recall | | | | | | reaction | + + + + + + | Nsaids | Other (See Comments) | | 02/24/20 | Doesn't recall | | | | | 15 | reaction | + + + + + + Current Medications + + +--------+---------+------+------+-------+ | Prescription | Sig. | Disp. | Refills | Star | End | Statu | | | | | | t | Date | s | | | | | | Date | | | + + +--------+---------+------+------+-------+ | amLODIPine | Take 5 mg by mouth 2 | | | | | Activ | | (NORVASC) 5 mg | times daily. | | | | | e | | tablet | | | | | | | + + +--------+---------+------+------+-------+ | aspirin 81 mg EC | Take 81 mg by mouth | | | | | Activ | | tablet | Daily. | | | | | e | + + +--------+---------+------+------+-------+ | Calcium | Take 1 tablet by | | | | | Activ | | Carb-Cholecalciferol | mouth Daily. | | | | | e | | (CALCIUM-VITAMIN D) | | | | | | | | 600-400 MG-UNIT | | | | | | | | TABS | | | | | | | + + +--------+---------+------+------+-------+ | magnesium oxide | Take 400 mg by mouth | | | | | Activ | | (MAG-OX) 400 mg | 2 times daily. | | | | | e | | tablet | | | | | | | + + +--------+---------+------+------+-------+ | Multiple | Take 1 tablet by | | | | | Activ | | Vitamins-Minerals | mouth Daily. | | | | | e | | (MULTIVITAMIN PO) | | | | | | | + + +--------+---------+------+------+-------+ | [place] 3 1000 MG | Take 1,000 mg by | | | | | Activ | | CAPS | mouth 3 times daily. | | | | | e | + + +--------+---------+------+------+-------+ | omeprazole | Take 20 mg by mouth | | | | | Activ | | (PRILOSEC) 20 mg | every morning | | | | | e | | capsule | (before breakfast). | | | | | | + + +--------+---------+------+------+-------+ | potassium chloride | Take 10 mEq by mouth | | | | | Activ | | (BLESSING HUSSEIN) 10 | Daily. | | | | | e | | MEQ ER tablet | | | | | | | + + +--------+---------+------+------+-------+ | psyllium (KONSYL) | Take 1 packet by | | | | | Activ | | 28.3 % PACK | mouth Daily as | | | | | e | | | needed. | | | | | | + + +--------+---------+------+------+-------+ | simvastatin | Take 20 mg by mouth | | | | | Activ | | (ZOCOR) 20 mg tablet | nightly. | | | | | e | + + +--------+---------+------+------+-------+ | levothyroxine | Take 75 mcg by mouth | | | 08/2 | | Activ | | (SYNTHROID, | Daily. | | | 0/20 | | e | | LEVOTHROID) 75 MCG | | | | 15 | | | | tablet | | | | | | | + + +--------+---------+------+------+-------+ | | Take 1-2 tablets by | 40 | 0 | 11/ | | Activ | | HYDROcodone-acetamin | mouth every 4 hours | tablet | | / | | e | | ophen (NORCO) 5-325 | as needed for Pain. | | | 16 | | | | mg per tablet | | | | | | | + + +--------+---------+------+------+-------+ Active Problems + + + | Problem | Noted Date | + + + | Femoral artery occlusion, right (HCC) | 03/28/2016 | + + + | H/O Blood transfusion | 03/27/2016 | + + + | H/O Electrolyte imbalance - hypokalemia, hypomagnesium | 03/27/2016 | + + + | H/O Hysterectomy | 02/09/2016 | + + + | Vulvovaginitis | 02/23/2015 | + + + + + | Overview: Radiation vulvovaginitis | + + + +---+ | Hypothyroidism | | + +---+ | Hypertension | | + +---+ | Preventative health care | | + +---+ + + | Overview: PAP-ASC-US (Atypical squamous underdetermined sig) | + + + +---+ | Hyperlipidemia | | + +---+ | Actinic keratosis | | + +---+ | Gout | | + +---+ | H/O Ovarian cancer - s/p chemo/radiation | | + +---+ + + | Overview: In her 30's | + + + +---+ | Chronic kidney disease, stage 3 | | + +---+ | Lower extremity edema | | + +---+ | Radiation proctitis | | + +---+ | Internal hemorrhoids | | + +---+ | Malignant neoplasm of vagina (HCC) | | + +---+ | Hypopotassemia | | + +---+ | Palpitations | | + +---+ | GERD (gastroesophageal reflux disease) | | + +---+ | Hypomagnesemia | | + +---+ | Peripheral vascular disease (HCC) | | + +---+ + + | Overview: Status post left femoral stent | + + + +---+ | Vitamin B12 deficiency | | + +---+ | Blood in stool | | + +---+ | Neoplasm of unspecified nature | | + +---+ + + | Overview: Neoplasm of unspecified nature of bone, soft | | tissue, and skin, noseProblem list lease buyer utility | + + Family History + + +------+ + | Medical History | Relation | Name | Comments | + + +------+ + | Cataracts | Paternal | | | | | Uncle | | | + + +------+ + | Alzheimer's disease | | | | + + +------+ + | Breast cancer | | | | + + +------+ + | Cancer | | | bone cancer | + + +------+ + | Lung cancer | | | | + + +------+ + + +------+ + + | Relation | Name | Status | Comments | + +------+ + + | Father | | | | + +------+ + + | Paternal Uncle | | | | + +------+ + + Social History + + + +--------+ + | Tobacco Use | Types | Packs/Day | Years | Date | | | | | Used | | + + + +--------+ + | Former Smoker | Cigarettes | 1 | 42 | Quit: 03/01/1995 | + + + +--------+ + + +---+---+---+ | Smokeless Tobacco: | | | | | Never Used | | | | + +---+---+---+ + + +---------+ + | Alcohol Use | Drinks/We | oz/Week | Comments | | | ek | | | + + +---------+ + | Yes | 0 | 0.0 | maybe once a year | | | Standard | | | | | drinks or | | | | | | | | | | equivalen | | | | | t | | | + + +---------+ + + + + | Sex Assigned at | Date Recorded | | | | + + + | Not on file | | + + + Last Filed Vital Signs + + + + | Vital Sign | Reading | Time Taken | + + + + | Blood Pressure | 113/56 | 03/30/2016 0745 PST | + + + + | Pulse | 96 | 04/12/20161118 PST | + + + + | Temperature | 36.6 C (97.8 F) | 04/12/20161118 PST | + + + + | Respiratory Rate | 16 | 04/12/20161118 PST | + + + + | Oxygen Saturation | 95% | 04/12/20161118 PST | + + + + | Inhaled Oxygen | - | - | | Concentration | | | + + + + | Weight | 66.2 kg (146 lb) | 04/12/20161118 PST | + + + + | Height | 160 cm (5' 3") | 04/12/20161118 PST | + + + + | Body Mass Index | 25.86 | 04/12/20161118 PST | + + + + Plan of [...] 65+ | 2 | | | | High/Highest Risk (1 | | | | | of 2 - PCV13) | | | | + + + + + | Vaccine: Influenza | | | | | (#1) | 8 | | | + + + + + Implants + +------+--------+ +--------+--------+--------+ | Implanted | Type | Area | Manufacture | Device | Expira | Model | | | | | r | | tion | / | | | | | | Identi | Date | Serial | | | | | | fier | | / Lot | + +------+--------+ +--------+--------+--------+ | Arterfraft Collagen Vascular | | Right: | COMEDICAL - | | 11/10/ | [id number] | | GraftImplanted: Qty: 1 on | | Groin | CMDA | | 2017 | / | | 03/28/2016 by , | | | | | | / | | Denver Fuchs MD, FACS | | | | | | 0-025 | + +------+--------+ +--------+--------+--------+ Results Not on filefrom Last 3 Months Insurance + +--------+ +--------+ +---------+ | Payer | Benefi | Subscriber | Type | Phone | Address | | | t Plan | ID | | | | | | / | | | | | | | Group | | | | | + +--------+ +--------+ +---------+ | MEDICARE | MEDICA | [id number] | Medica | [phone] | | | RE | | re | [phone] | | | | PART A | | | | | | | AND B | | | | | + +--------+ +--------+ +---------+ | [facility] | IHS | [id number] | Indemn | | | | SERVICE | YELLOW | | ity | | | | | HAWK | | | | | + +--------+ +--------+ +---------+ + +--------+ +--------+ + + | Guarantor Name | Accoun | Relation to | Date | Phone | Billing Address | | | t Type | Patient | of | | | | | | | | | | + +--------+ +--------+ + + | SALMA MONTOYA | Person | Self | [birth year] | Home: | [address] | | [place] | al/Fam | | 1936 | [phone] | [place] [address] | | | [place] | | | [phone] | | + +--------+ +--------+ + +
--- OUTSIDE RECORDS SUMMARY | ~2018-02-01 | XMS | Clinical Summary ---
Demographics + + + | Address | [address] | | | [place] [address] | + + + | Home Phone | | + + + | Preferred Language | Unknown | + + + | Marital Status | Single | + + + | Taoist Affiliation | Unknown | + + + [...] Team Providers + +------+ + | Care Commissioner Of Officials Name | Role | Phone | + [...] 1.00 m/s MV Dec | | | [place]: 4.66 m/s2 MV DecT: 241.04 ms MV E Billy: 1.12 m/s | | | MV E/A Ratio: 1.11 MV PHT: 69.90 ms MVA By PHT: 3.14 | | | cm2 Septal e': 0.07 m/s Septal E/e': 15.78 Lateral e': | | | 0.07 m/s Lateral E/e': 15.87 RAP: 5 mmHg RVSP: 24.73 | | | mmHg TR maxP.73 mmHg TR Vmax: 2.22 m/s Trash Collector Supervisor: | | | DH Authenticated by: DOMINGUEZ CASTELLANO MD Report Date/Time: -- | | | [id number]:15:58 | | + + + + + | Procedure Note | + + | [place], Rad Results In - 01/02/2018 8:16 PM PDT Patient Name: Tracy Montoya of | | : 1935ccession: [id number] Physician: DOMINGUEZ CASTELLANO MD | | INDICATIONS [...] cmLVIDd: 4.21 cmLVPWd: 0.98 cmLVOT Area: 3.07 ox9XYEC Diam: 1.97 cm%FS: 34.50 | | %EF(Teich): [...] (A-L): 24.09 ml/m2LAAs A2C: 15.41 | | kx8EBSYC A-L A2C: 37.89 mlLALs A2C: 5.32 cmLAAs A4C: 16.46 nu6JYWQM A-L A4C: | | 41.83 mlLALs A4C: 5.50 cmRAAs: 12.37 ww7ZOCLS A-L: 25.80 mlRAESV MOD: 25.58 | | mlRALs: 5.03 cmTAPSE: 2.44 cmAV maxP.42 mmHgAV meanP.02 mmHgAV Vmax: | | 1.68 m/Miguel Vmean: 1.15 m/Miguel VTI: 30.20 cmAVA Vmax: 3.07 cm2AVA (VTI): 3.25 | | ao7HAJT maxP.40 mmHgLVOT meanP.46 mmHgLVSI Dopp: 58.44 ml/m2LVSV Dopp: | | 98.19 mlLVOT Vmax: 1.68 m/sLVOT Vmean: 1.07 m/sLVOT VTI: 31.94 cmMV A Billy: 1.00 | | m/sMV Dec [place]: 4.66 m/s2MV DecT: 241.04 msMV E Billy: 1.12 m/sMV E/A Ratio: 1.11 | | MV PHT: 69.90 msMVA By PHT: 3.14 lu7Sgdkuu e': 0.07 m/sSeptal E/e': 15.78 | | Lateral e': 0.07 m/sLateral E/e': 15.87 RAP: 5 mmHgRVSP: 24.73 mmHgTR maxPG: | | 19.73 mmHgTR Vmax: 2.22 m/sSonographer: DHAuthenticated by: DOMINGUEZ CASTELLANO | | MDReport Date/Time: -- [id number]:15:58IMPRESSION:1. Left ventricular systolic | | function is [...] A Billy: 1.00 m/s | |MV Dec [place]: 4.66 m/s2 | |MV DecT: 241.04 ms [...] |TR Vmax: 2.22 m/s | | | |Trash Collector Supervisor: ZACK | |Authenticated by: DOMINGUEZ CASTELLANO MD | |Report Date/Time: -- [id number]:15:58 | | | |IMPRESSION: | |1. Left ventricular systolic function is hyperdynamic with an estimated EF of >70%. | + + + + + + + | Performing | Address | City/State/Zipcode | Phone Number | | Organization | | | | + + + + + | [facility] | [address] | [place] [address] | | + + + + + [...] +------+-------+ + | MEDICARE | MEDICA | [id number] | | | [address] | | | RE | | | | [place] [phone] | | | IP-OP | | | | | + +--------+ +------+-------+ + | [facility] | YELLOW | [phone] | | | | | PLANS | [...] | Self | [birth year] | Home: | [address] | | | al/Fam | | 1936 | [phone] | [place] [address] | | | [place] | | | [phone] | | + +--------+ +--------+ + +
--- OUTSIDE RECORDS SUMMARY | ~2018-02-01 | XMS | Encounter Summary ---
Demographics + + + | Address | [address] | | | [place] [address] | + + + | Home Phone | | + + + | Preferred Language | Unknown | + + + | Marital Status | Single | + + + | Buddhist Affiliation | Unknown | + + + | Race | Unknown | + + + | Ethnic Group | Unknown | + + + Author + + + | Author | [facility] | + + + | [...] Team Providers + +------+ + | Care Welder Journeyman Name | Role | Phone | + +------+ + PCP | Unavailable | + +------+ + Encounter Details +--------+ + + + + | Date | Type | Department | Care Team | Description | +--------+ + + + + | 01/02/ | Ancillary | [facility] | Javier Cruz DO | Bacteremia | | 2018 | Orders | ECHO | [address] | | | | | | [place] [address] | | | | | | [phone] | | | | | | | | +--------+ + + + + Social History + +-------+ +--------+------+ | Tobacco [...] on file | | + + + as of this encounter Plan of Treatment Not on fileas of this encounter Results ECHO outside interpretation standard (01/02/2018 3:02 [...] Salma Montoya Date of : 1935 | [facility] | | Performing Physician: DOMINGUEZ CASTELLANO | [...] 1.00 m/s MV Dec | | | [place]: 4.66 m/s2 MV DecT: 241.04 ms MV E Billy: 1.12 m/s | | | MV E/A Ratio: 1.11 MV PHT: 69.90 ms MVA By PHT: 3.14 | | | cm2 Septal e': 0.07 m/s Septal E/e': 15.78 Lateral e': | | | 0.07 m/s Lateral E/e': 15.87 RAP: 5 mmHg RVSP: 24.73 | | | mmHg TR maxP.73 mmHg TR Vmax: 2.22 m/s Molding Line Operator: | | | DH Authenticated by: DOMINGUEZ CASTELLANO MD Report Date/Time: -- | | | [id number]:15:58 | | + + + + + | Procedure Note | + + | [place], Rad Results In - 01/02/2018 8:16 PM PDT Patient Name: Tracy Montoya of | | : 1935ccession: [id number] Physician: DOMINGUEZ CASTELLANO MD | | INDICATIONS [...] cmLVIDd: 4.21 cmLVPWd: 0.98 cmLVOT Area: 3.07 [id number] Diam: 1.97 cm%FS: 34.50 | | %EF(Teich): [...] (A-L): 24.09 ml/m2LAAs A2C: 15.41 | | kg8KYNYO A-L A2C: 37.89 mlLALs A2C: 5.32 cmLAAs A4C: 16.46 qx8JKEYQ A-L A4C: | | 41.83 mlLALs A4C: 5.50 cmRAAs: 12.37 vi4VPEFQ A-L: 25.80 mlRAESV MOD: 25.58 | | mlRALs: 5.03 cmTAPSE: 2.44 cmAV maxP.42 mmHgAV meanP.02 mmHgAV Vmax: | | 1.68 m/Miguel Vmean: 1.15 m/Miguel VTI: 30.20 cmAVA Vmax: 3.07 cm2AVA (VTI): 3.25 | | ev5AYSF maxP.40 mmHgLVOT meanP.46 mmHgLVSI Dopp: 58.44 ml/m2LVSV Dopp: | | 98.19 mlLVOT Vmax: 1.68 m/sLVOT Vmean: 1.07 m/sLVOT VTI: 31.94 cmMV A Billy: 1.00 | | m/sMV Dec [place]: 4.66 m/s2MV DecT: 241.04 msMV E Billy: 1.12 m/sMV E/A Ratio: 1.11 | | MV PHT: 69.90 msMVA By PHT: 3.14 vt0Argyah e': 0.07 m/sSeptal E/e': 15.78 | | Lateral e': 0.07 m/sLateral E/e': 15.87 RAP: 5 mmHgRVSP: 24.73 mmHgTR maxPG: | | 19.73 mmHgTR Vmax: 2.22 m/sSonographer: DHAuthenticated by: DOMINGUEZ CASTELLANO | | MDReport Date/Time: -- [id number]:15:58IMPRESSION:1. Left ventricular systolic | | function is [...] A Billy: 1.00 m/s | |MV Dec [place]: 4.66 m/s2 | |MV DecT: 241.04 ms [...] |TR Vmax: 2.22 m/s | | | |Molding Line Operator: DH | |Authenticated by: DOMINGUEZ CASTELLANO MD | |Report Date/Time: [id number]:15:58 | | | |IMPRESSION: | |1. Left ventricular systolic function is hyperdynamic with an estimated EF of >70%. | + + + + + + + | Performing | Address | City/State/Zipcode | Phone Number | | Organization | | | | + + + + + | [facility] | [address] | [place] [address] | | + + + + + in this encounter Visit Diagnoses + + | Diagnosis | + + | Bacteremia | + +"
--- OUTSIDE RECORDS SUMMARY | ~2018-02-01 | XMS | Encounter Summary ---
Demographics + + + | Address | [address] | | | [place] [address] | + + + | Home Phone | | + + + | Preferred Language | Unknown | + + + | Marital Status | Single | + + + | Confucianist Affiliation | Unknown | + + + | Race | Unknown | + + + | Ethnic Group | Unknown | + + + Author + + + | Author | [facility] | + + + [...] Team Providers + +------+ + | Care English Composition Instructor Name | Role | Phone | + +------+ + PCP | Unavailable | + +------+ + Encounter Details +--------+ + + + + | Date | Type | Department | Care Team | Description | +--------+ + + + + | 01/02/ | Ancillary | [facility] | Javier Cruz DO | Bacteremia | | 2018 | Procedure | ECHO | [address] | | | | | | [place], [place] [address] | | | | | | [phone] | | | | | | | [...] Treatment Not on fileas of this encounter Procedures + +--------+ + + + | [...] section. | + +--------+ + + + in this encounter Results ECHO outside interpretation standard [...] Salma Montoya Date of : 1935 | [facility] | | Performing Physician: DOMINGUEZ CASTELLANO | [...] 1.00 m/s MV Dec | | | [place]: 4.66 m/s2 MV DecT: 241.04 ms MV E Billy: 1.12 m/s | | | MV E/A Ratio: 1.11 MV PHT: 69.90 ms MVA By PHT: 3.14 | | | cm2 Septal e': 0.07 m/s Septal E/e': 15.78 Lateral e': | | | 0.07 m/s Lateral E/e': 15.87 RAP: 5 mmHg RVSP: 24.73 | | | mmHg TR maxP.73 mmHg TR Vmax: 2.22 m/s Labor Relations Teacher: | | | DH Authenticated by: DOMINGUEZ CASTELLANO MD Report Date/Time: -- | | | [id number]:15:58 | | + + + + + | Procedure Note | + + | Gopal Pruitt Results In - 01/02/2018 8:16 PM PDT Patient Name: Nahun Montoya | | : 1935ccession: [id number] Physician: DOMINGUEZ CASTELLANO MD | | INDICATIONS [...] cmLVIDd: 4.21 cmLVPWd: 0.98 cmLVOT Area: 3.07 gb8SGBB Diam: 1.97 cm%FS: 34.50 | | %EF(Teich): [...] (A-L): 24.09 ml/m2LAAs A2C: 15.41 | | wr9XZRZY A-L A2C: 37.89 mlLALs A2C: 5.32 cmLAAs A4C: 16.46 el8ERNCC A-L A4C: | | 41.83 mlLALs A4C: 5.50 cmRAAs: 12.37 in4WRYDI A-L: 25.80 mlRAESV MOD: 25.58 | | mlRALs: 5.03 cmTAPSE: 2.44 cmAV maxP.42 mmHgAV meanP.02 mmHgAV Vmax: | | 1.68 m/Miguel Vmean: 1.15 m/Miguel VTI: 30.20 cmAVA Vmax: 3.07 cm2AVA (VTI): 3.25 | | ol4UCZF maxP.40 mmHgLVOT meanP.46 mmHgLVSI Dopp: 58.44 ml/m2LVSV Dopp: | | 98.19 mlLVOT Vmax: 1.68 m/sLVOT Vmean: 1.07 m/sLVOT VTI: 31.94 cmMV A Billy: 1.00 | | m/sMV Dec [place]: 4.66 m/s2MV DecT: 241.04 msMV E Billy: 1.12 m/sMV E/A Ratio: 1.11 | | MV PHT: 69.90 msMVA By PHT: 3.14 rh0Ndeuze e': 0.07 m/sSeptal E/e': 15.78 | | Lateral e': 0.07 m/sLateral E/e': 15.87 RAP: 5 mmHgRVSP: 24.73 mmHgTR maxPG: | | 19.73 mmHgTR Vmax: 2.22 m/sSonographer: DHAuthenticated by: DOMINGUEZ CASTELLANO | | MDReport Date/Time: -- [id number]:15:58IMPRESSION:1. Left ventricular systolic | | function is [...] A Billy: 1.00 m/s | |MV Dec [place]: 4.66 m/s2 | |MV DecT: 241.04 ms [...] |TR Vmax: 2.22 m/s | | | |Labor Relations Teacher: ZACK | |Authenticated by: DOMINGUEZ CASTELLANO MD | |Report Date/Time: -- 01_12-0-1064_20:15:58 | | | |IMPRESSION: | |1. Left ventricular systolic function is hyperdynamic with an estimated EF of >70%. | + + + + + + + | Performing | Address | City/State/Zipcode | Phone Number | | Organization | | | | + + + + + | [facility] | [address] | [place] [address] | | + + + + + in this encounter Visit Diagnoses + + | Diagnosis | + + | Bacteremia | + +"
--- OUTSIDE RECORDS SUMMARY | ~2018-02-01 | XMS | Clinical Summary ---
Demographics + + + | Address | [address] | | | [place] [address] | + + + | Home Phone | | + + + | Preferred Language | Unknown | + + + | Marital Status | Single | + + + | Adventism Affiliation | Unknown | + + + | Race | or | + + + | Ethnic Group | Not or | + + + Author + + + | Author | NON REVENUE LOCATIONS | + + + | Organization | NON REVENUE LOCATIONS | + + + | Address | Unknown | + + + | Phone | Unavailable | + + + Support + + +---------+ + | Name | Relationship | Address | Phone | + + +---------+ + | ALEE [place] | ECON | Unknown | | + + +---------+ + Care Team Providers + +------+ + | Care Embedded Systems Designer Name | Role | Phone | + +------+ + | No Pcp Per Patient | PP | Unavailable | + +------+ + Source Comments [facility] is fully live on both [facility] and [facility] Allergies No Known Allergies Current Medications + + +-------+---------+------+------+-------+ | Prescription | Sig. | Disp. | Refills | Star | End | Statu | | | | | | t | Date | s | | | | | | Date | | | + + +-------+---------+------+------+-------+ | ZETIA ORAL | None Entered | | | | | Activ | | | | | | | | e | + + +-------+---------+------+------+-------+ | PRILOSEC ORAL | None Entered | | | | | Activ | | | | | | | | e | + + +-------+---------+------+------+-------+ | Aspirin 81 mg Oral | None Entered | | | | | Activ | | Tablet | | | | | | e | + + +-------+---------+------+------+-------+ | SYNTHROID ORAL | None Entered | | | | | Activ | | | | | | | | e | + + +-------+---------+------+------+-------+ | simvastatin | Take 20 mg by mouth | | | | | Activ | | (ZOCOR) 20 mg Oral | once daily in the | | | | | e | | Tablet | evening. | | | | | | + + +-------+---------+------+------+-------+ | amLODIPine 5 mg | Take 5 mg by mouth | | | | | Activ | | Oral Tablet | once daily. | | | | | e | + + +-------+---------+------+------+-------+ Active Problems + + + | Problem | Noted Date | + + + | Vaginal cancer (HCC) | 01/21/2007 | + + + Social History + +-------+ [...] + + + | Blood Pressure | 123/63 | 01/02/2011 2:00 PM PDT | + + + + | Pulse | 57 | 01/02/2011 2:00 PM PDT | + + + + | Temperature | 36.6 C (97.9 F) | 01/02/2011 2:00 PM PDT | + + + + | Respiratory Rate | 19 | 01/02/2011 2:00 PM PDT | + + + + | Oxygen Saturation | 97% | 01/02/2011 2:00 PM PDT | + + + + | Inhaled Oxygen | - | - | | Concentration | | | + + + + | Weight | 73.6 kg (162 lb 3.2 | 01/02/2011 2:00 PM PDT | | | oz) | | + + + + | Height | - | - | + + + + | Body Mass Index | - | - | + + + + Plan of Treatment + + + + + | Health Maintenance | Due Date | Last Done | Comments | + + + + + | Pneumococcal (Adult) | | | | | (1 of 2 - PCV13) | 2 | | | + + + + + | INFLUENZA VACCINE | | | | | (FLU SHOT) | 8 | | | + + + + + Results Not on filefrom Last 3 Months Insurance + +--------+ +--------+-------+---------+ | Payer | Benefi | Subscriber | Type | Phone | Address | | | t Plan | ID | | | | | | / | | | | | | | Group | | | | | + +--------+ +--------+-------+---------+ | [facility] | [facility] | xxxxxxxxx | Agency | | | | SERVICE | | | | | | | | HEALTH | | | | | | | | | | | | | | SERVIC | | | | | | | E | | | | | + +--------+ +--------+-------+---------+ + +--------+ +--------+ + + | Guarantor Name | Accoun | Relation to | Date | Phone | Billing Address | | | t Type | Patient | of | | | | | | | | | | + +--------+ +--------+ + + | ETHEL SANFORD | Person | Self [birth year] | Home: | [address] | | | al/Fam | | 1936 | [phone] [place] [address] | | | vianney | | | [phone] | | + +--------+ +--------+ + + | ETHEL SANFORD | Medica | Self | [birth year] | Home: | [address] | | | re | | 1936 | [phone] [place] [address] | | | Recurr | | | [phone] | | | | ing | | | | | + +--------+ +--------+ + +"
--- OUTSIDE RECORDS SUMMARY | ~2018-02-01 | XMS | Encounter Summary ---
Demographics + + + | Address | [address] | | | [place] [address] | + + + | Home Phone | | + + + | Preferred Language | Unknown | + + + | Marital Status | Single | + + + | Uatsdin Affiliation | Unknown | + + + | Race | Unknown | + + + | Ethnic Group | Unknown | + + + Author + + + | Author | [facility] | + + + | [...] Team Providers + +------+ + | Care Technical Support Director Name | Role | Phone | + [...] | | | | | [place] [address] | | | | | | [phone] | | | | | | | [...] Salma Montoya Date of : 1935 | [facility] | | Performing Physician: DOMINGUEZ CASTELLANO | [...] 1.00 m/s MV Dec | | | [place]: 4.66 m/s2 MV DecT: 241.04 ms MV E Billy: 1.12 m/s | | | MV E/A Ratio: 1.11 MV PHT: 69.90 ms MVA By PHT: 3.14 | | | cm2 Septal e': 0.07 m/s Septal E/e': 15.78 Lateral e': | | | 0.07 m/s Lateral E/e': 15.87 RAP: 5 mmHg RVSP: 24.73 | | | mmHg TR maxP.73 mmHg TR Vmax: 2.22 m/s Animal Scientist: | | | DH Authenticated by: DOMINGUEZ CASTELLANO MD Report Date/Time: -- | | | [id number]:58 | | + + + + + | Procedure Note | + + | Gopal Pruitt Results In - 01/02/2018 8:16 PM PDT Patient Name: Nahun Montoya | | : 1935ccession: [id number] Physician: DOMINGUEZ CASTELLANO MD | | INDICATIONS [...] cmLVIDd: 4.21 cmLVPWd: 0.98 cmLVOT Area: 3.07 [id number] Diam: 1.97 cm%FS: 34.50 | | %EF(Teich): [...] (A-L): 24.09 ml/m2LAAs A2C: 15.41 | | [id number] A-L A2C: 37.89 mlLALs A2C: 5.32 cmLAAs A4C: 16.46 fd5YZDOH A-L A4C: | | 41.83 mlLALs A4C: 5.50 cmRAAs: 12.37 lx5ISJLQ A-L: 25.80 mlRAESV MOD: 25.58 | | mlRALs: 5.03 cmTAPSE: 2.44 cmAV maxP.42 mmHgAV meanP.02 mmHgAV Vmax: | | 1.68 m/Miugel Vmean: 1.15 m/Miguel VTI: 30.20 cmAVA Vmax: 3.07 cm2AVA (VTI): 3.25 | | oz8DYKG maxP.40 mmHgLVOT meanP.46 mmHgLVSI Dopp: 58.44 ml/m2LVSV Dopp: | | 98.19 mlLVOT Vmax: 1.68 m/sLVOT Vmean: 1.07 m/sLVOT VTI: 31.94 cmMV A Billy: 1.00 | | m/sMV Dec [place]: 4.66 m/s2MV DecT: 241.04 msMV E Billy: 1.12 m/sMV E/A Ratio: 1.11 | | MV PHT: 69.90 msMVA By PHT: 3.14 qq6Pdwkwi e': 0.07 m/sSeptal E/e': 15.78 | | Lateral e': 0.07 m/sLateral E/e': 15.87 RAP: 5 mmHgRVSP: 24.73 mmHgTR maxPG: | | 19.73 mmHgTR Vmax: 2.22 m/sSonographer: DHAuthenticated by: DOMINGUEZ CASTELLANO | | MDReport Date/Time: -- [id number]:15:58IMPRESSION:1. Left ventricular systolic | | function is [...] A Billy: 1.00 m/s | |MV Dec [place]: 4.66 m/s2 | |MV DecT: 241.04 ms [...] |TR Vmax: 2.22 m/s | | | |Animal Scientist: ZACK | |Authenticated by: DOMINGUEZ CASTELLANO MD | |Report Date/Time: -- [id number]:15:58 | | | |IMPRESSION: | |1. Left ventricular systolic function is hyperdynamic with an estimated EF of >70%. | + + + + + + + | Performing | Address | City/State/Zipcode | Phone Number | | Organization | | | | + + + + + | [facility] | [address] | [place] [address] | | + + + + + in this encounter Visit Diagnoses + + | Diagnosis | + + | Bacteremia | + +"
--- OUTSIDE RECORDS SUMMARY | ~2018-02-01 | XMS | Encounter Summary ---
Demographics + + + | Address | [address] | | | [place] [address] | + + + | Home Phone | | + + + | Preferred Language | Unknown | + + + | Marital Status | Single | + + + | Advent Affiliation | Unknown | + + + | Race | Unknown | + + + | Ethnic Group | Unknown | + + + Author + + + | Author | [facility] | + + + [...] Team Providers + +------+ + | Care Director Sales And Marketing Name | Role | Phone | + [...] | | | [place] [address] | | | | | | [phone] | | | | | | | [...] 1.00 m/s MV Dec | | | [place]: 4.66 m/s2 MV DecT: 241.04 ms MV E Billy: 1.12 m/s | | | MV E/A Ratio: 1.11 MV PHT: 69.90 ms MVA By PHT: 3.14 | | | cm2 Septal e': 0.07 m/s Septal E/e': 15.78 Lateral e': | | | 0.07 m/s Lateral E/e': 15.87 RAP: 5 mmHg RVSP: 24.73 | | | mmHg TR maxP.73 mmHg TR Vmax: 2.22 m/s Printed Circuit Boards Router: | | | DH Authenticated by: DOMINGUEZ CASTELLANO MD Report Date/Time: -- | | | [id number]:15:58 | | + + + + + | Procedure Note | + + | [place], Rad Results In - 01/02/2018 8:16 PM PDT Patient Name: Tracy Montoya of | | : 1935ccession: [id number] Physician: DOMINGUEZ CASTELLANO MD | | INDICATIONS [...] cmLVIDd: 4.21 cmLVPWd: 0.98 cmLVOT Area: 3.07 [id number] Diam: 1.97 cm%FS: 34.50 | | %EF(Teich): [...] (A-L): 24.09 ml/m2LAAs A2C: 15.41 | | pu6MBFFR A-L A2C: 37.89 mlLALs A2C: 5.32 cmLAAs A4C: 16.46 us1MIPHK A-L A4C: | | 41.83 mlLALs A4C: 5.50 cmRAAs: 12.37 en9NDDBM A-L: 25.80 mlRAESV MOD: 25.58 | | mlRALs: 5.03 cmTAPSE: 2.44 cmAV maxP.42 mmHgAV meanP.02 mmHgAV Vmax: | | 1.68 m/Miguel Vmean: 1.15 m/Miguel VTI: 30.20 cmAVA Vmax: 3.07 cm2AVA (VTI): 3.25 | | hl9WIVH maxP.40 mmHgLVOT meanP.46 mmHgLVSI Dopp: 58.44 ml/m2LVSV Dopp: | | 98.19 mlLVOT Vmax: 1.68 m/sLVOT Vmean: 1.07 m/sLVOT VTI: 31.94 cmMV A Billy: 1.00 | | m/sMV Dec [place]: 4.66 m/s2MV DecT: 241.04 msMV E Billy: 1.12 m/sMV E/A Ratio: 1.11 | | MV PHT: 69.90 msMVA By PHT: 3.14 qn7Xjaush e': 0.07 m/sSeptal E/e': 15.78 | | Lateral e': 0.07 m/sLateral E/e': 15.87 RAP: 5 mmHgRVSP: 24.73 mmHgTR maxPG: | | 19.73 mmHgTR Vmax: 2.22 m/sSonographer: DHAuthenticated by: DOMINGUEZ CASTELLANO | | MDReport Date/Time: -- [id number]:15:58IMPRESSION:1. Left ventricular systolic | | function is [...] A Billy: 1.00 m/s | |MV Dec [place]: 4.66 m/s2 | |MV DecT: 241.04 ms [...] |TR Vmax: 2.22 m/s | | | |Printed Circuit Boards Router: DH | |Authenticated by: DOMINGUEZ CASTELLANO MD | |Report Date/Time: [id number]:15:58 | | | |IMPRESSION: | |1. Left ventricular systolic function is hyperdynamic with an estimated EF of >70%. | + + + + + + + | Performing | Address | City/State/Zipcode | Phone Number | | Organization | | | | + + + + + | [facility] | [address] | [place] [address] | | + + + + + in this encounter Visit Diagnoses + + | Diagnosis | + + | Bacteremia | + +"
--- OUTSIDE RECORDS SUMMARY | ~2018-02-01 | XMS | Clinical Summary ---
Demographics + + + | Address | [address] | | | [place] [address] | + + + | Home Phone | | + + + | Preferred Language | Unknown | + + + | Marital Status | Single | + + + | Denominational Affiliation | Unknown | + + + [...] Team Providers + +------+ + | Care Wet End Tester Name | Role | Phone | + +------+ + | No Pcp Per Patient | PP | Unavailable | + +------+ + Source Comments [facility]ON is fully live on both [facility] Allergies No Known Allergies Current Medications + [...] | | | + +--------+ +--------+-------+---------+ | [facility] | [facility] | xxxxxxxxx | Agency | | | [...] | Self | [birth year] | Home: | [address] | | | al/Fam | | 1936 | [phone] | [place] [address] | | | vianney | | | 1989 | | + +--------+ +--------+ + + | ETHEL SANFORD | Medica | Self | [birth year] | Home: | [address] | | | re | | 1936 | [phone] | [place] [address] | | | Recurr | | | [address]30 | | | | ing | | | | | + +--------+ +--------+ + +"
--- OUTSIDE RECORDS SUMMARY | ~2018-02-01 | XMS | Clinical Summary ---
Demographics + + + | Address | [address] | | | [place] [address] | + + + | Home Phone | | + + + | Preferred Language | Unknown | + + + | Marital Status | | + + + | Confucianist Affiliation | [phone] | + + + | Race | Unknown | + + + | Ethnic Group | Unknown | + + + Author + + + | Author | [facility] | | | and [place] | + + + | Organization | [facility] | | | and [place] | + + + | Address | Unknown | + + + | Phone | Unavailable | + + + Support + + + + + | Name | Relationship | Address | Phone | + + + + + | Ana Terrazas | ECON | [address] | | | | | [place] [address] | | + + + + + Care Team Providers + +------+ + | Care Aquaculture Program Director Name | Role | Phone | [...] | | | + + +--------+---------+------+------+-------+ | Summers 3 1000 MG | Take 1,000 mg [...] | | tissue, and skin, noseProblem list ironer sock utility | + + Family History + [...] +--------+ +---------+ | MEDICARE | MEDICA | [id number] | Medica | [phone] | | | | RE | | re | [phone] | | | | PART A | | | | | | | AND B | | | | | + +--------+ +--------+ +---------+ | [facility] | IHS | [id number] | Indemn | | | | SERVICE [...] | Self | [birth year] | Home: | [address] | | [place] | al/Fam | | 1936 | [phone] | [place] [address] | | | vianney | | | [phone] | | + +--------+ +--------+ + +
[~2018-02-01 12:30] MED LIST changes: +CALCIUM 600 +1 EAC3 PO; +CIPROFLOXACIN500 MG PO; +DIPHENOXYLATE-1 EACH PO; +KEFLEX500 MG PO; +KLOR-CON 1010 MEQ PO; +METRONIDAZOLE500 MG PO; +PSYLLIUM HUSK1 GM MISC; +ROSUVASTATIN CAL5 MG PO; +ZOFRAN ODT4 MG PO
--- OUTSIDE RECORDS SUMMARY | 2018-02-01 12:34 | XMS ---
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 Grady has no Care Guidelines for this patient. Tiffanie VISIT COUNT (12 MO.) [address] [facility] TOTAL 4 NOTE: Visits indicate total known visits. ED/C VISIT TRACKING (12 MO.) 02/01/2018 12:30 [facility] [place] TYPE: Emergency COMPLAINT: - VOMITING 01/31/2018 17:18 [facility] [place] TYPE: Emergency COMPLAINT: - VOMITING 12/31/2017 19:27 [facility] [place] TYPE: Emergency COMPLAINT: - NAUSEA,DIARRHEA 12/20/2017 18:17 [facility] [place] TYPE: Emergency COMPLAINT: - VOMITING DIAGNOSES: - Allergy status to other drugs, medicaments and biological substances status - Other shelter (current) drug therapy - Essential (primary) hypertension - Diarrhea, unspecified - Noninfective gastroenteritis and colitis, unspecified - shelter (current) use of aspirin - Personal history of nicotine dependence INPATIENT VISIT TRACKING (12 MO.) No inpatient visits to display in this time frame [email or web address]
[2018-02-01] MEDS ORDERED: PROMETHAZI6.25 MG/5 PO (15:39)
== END 2018-02-01 15:50 | disposition home or self-care (01) ==
LOC: ED 12:30
DX: K76.0 Fatty (change of) liver, not elsewhere classified (principal); K80.20 Calculus of gallbladder without cholecystitis without obstruction; N39.0 Urinary tract infection, site not specified; I10 Essential (primary) hypertension; Z87.891 Personal history of nicotine dependence; Z88.8 Allergy status to other drugs, medicaments and biological substances; Z88.1 Allergy status to other antibiotic agents; Z79.899 Other long term (current) drug therapy
CPT/HCPCS: 76705; 80053; 83690; 85025; 96361; 96374; 96375; 99284; J0696; J2405; J7120

== ENCOUNTER 2018-02-08 05:35 | Day surgery (SDC) | payer MEDICARE, OTHER ==
[~2018-02-08] VITALS: Ht 160 cm; Wt 62.6 kg
[~2018-02-08 05:35] MED LIST changes: +PROMETHAZI6.25 MG/5 PO
--- NOTE | 2018-02-08 06:37 | NUR ---
lab was in to draw mag level.
--- NOTE | 2018-02-08 09:18 | NUR ---
02/08/18 0918 Layla Samuels 0857- PT ARRIVES TO PACU ON 6L VIA MASK. OXYGEN SAT 100% ON THIS. PT IS EASILY AROUSABLE TO VOICE. PT REPORTS NO PAIN OR NAUSEA AT THIS TIME.
--- NOTE | 2018-02-08 09:41 | NUR ---
FAMILY IN ROOM.
[2018-02-08] MEDS ORDERED: NORCO 5-325 TA1 EACH PO (10:13)
--- NOTE | 2018-02-08 10:26 | NUR ---
TAKEN OFF O2. RA SAT 98%
--- NOTE | 2018-02-08 10:35 | OR ---
[facility] [address], [place] [address] Signed DATE OF OPERATION: 02/08/2018 SURGEON: Austin Orona MD PREOPERATIVE DIAGNOSIS: Chronic cholecystitis with cholelithiasis. POSTOPERATIVE DIAGNOSIS: Chronic cholecystitis with cholelithiasis. PROCEDURE(S) PERFORMED: Laparoscopic cholecystectomy without intraoperative cholangiogram. ESTIMATED BLOOD LOSS: None. INDICATIONS: Salma is an 82-year-old female, who remains quite independent. [place] and still [place] herself around for her daily needs. The last 3 to 4 weeks, she was having trouble with nausea and vomiting, it was particularly worse after eating. She cut back her eating and dropped her weight from 153 pounds down to 138 pounds. She ended up in the emergency room and was found to have an E. coli bacteremia. They searched for sources of infections and the only thing they could find were her gallstones. She even had an echocardiogram done during the hospital stay and that was fine. In the meantime, they let her go home and had her come see me as a General Surgeon. She has continued to have symptoms and with respect to the gallbladder. I had given her a pamphlet on the gallbladder, we looked at that together along with the location and function of the gallbladder. We discussed laparoscopic versus open cholecystectomy. She also understands there is risk including, but not limited to bleeding, infection, scarring, change in contour of the skin, damage to bowel damage to main bile duct, incisional hernias, and other unforeseen comorbidities including . She had expressed understanding and wished to proceed. PROCEDURE NOTE: Salma was taken into our operating room and placed in the supine position under general endotracheal tube anesthesia. We all spoke with her in the preop area. She was given preoperative antibiotics along with subcutaneous heparin. SCDs were utilized. She was then prepped and draped in the usual sterile fashion. All trocars were placed in usual positions under direct visualization of camera without difficulty. The gallbladder was grasped and elevated in the right upper quadrant. We knew it medially and had a Electronically Signed By: AUSTIN ORONA MD 02/08/18 1035 PATIENT NAME: SALMA SANFORD OPERATIVE REPORT DATE OF : 37 REPORT #: [id number] PHYSICIAN: AUSTIN ORONA MD PCP: CRYSTAL HERRERA REPORT IS CONFIDENTIAL AND NOT TO BE RELEASED WITHOUT AUTHORIZATION [facility] [address], [place] [address] Signed thickened wall. We took down some surrounding adhesions bluntly and with judicious cautery. The triangle of Calot was dissected free and a clip was placed on the cystic artery and it was divided. We then opened the cystic duct and we ran into the valves of Heister. Consequently, we were not able to fully insert the intraoperative cholangiogram catheter, it seemed to be leaking posteriorly, so we decided to stop the withdrawal the catheter. We secured the cystic duct stump with a PDS Endoloop and 2 clips were placed across the cystic duct stump to kamilla its location. After this, the gallbladder was carefully removed from the gallbladder fossa with the help of the cautery and placed into an EndoCatch bag. The right upper quadrant was irrigated and suctioned out until clear. We used a #7 flat Ángel drain and brought that in the gallbladder fossa and out the right most lateral 5 mm subcostal trocar site, it was held in place with a 2-0 nylon suture at the level of skin. We then used our laparoscopic suturing device to pass 0 Vicryl suture on either side of the fascia of the subxiphoid trocar site, this was tied down to close this fascia primarily. After this, all the gas was allowed to escape and the remaining trocars were removed along with the gallbladder. We closed the supraumbilical fascia with interrupted avbypj-rr-kifdk sutures along with simple suture as well. Local anesthetic was copiously injected into all trocar sites. Each trocar site was irrigated and suctioned out until clear. The skin and dermis of each trocar site were closed with interrupted 3-0 subcuticular Monocryl sutures. Dry gauze and tape were applied to all incisions. Salma was then awakened from anesthesia, extubated in the OR, and taken to recovery room in stable condition. Austin Orona MD ALB/MODL /[id number] cc: Ysabel South MD Copies: YSABEL SOUTH MD ~ Electronically Signed By: AUSTIN ORONA MD 02/08/18 1035 PATIENT NAME: SALMA SANFORD OPERATIVE REPORT DATE OF : 37 REPORT #: [id number] PHYSICIAN: AUSTIN ORONA MD PCP: CRYSTAL HERRERA REPORT IS CONFIDENTIAL AND NOT TO BE RELEASED WITHOUT AUTHORIZATION
--- NOTE | 2018-02-08 10:47 | NUR ---
LE [address] DR ORONA NOTIFIED HEPARIN MISSED PREOP TOLD TO GIVE AT THIS TIME AND GIVEN.
--- NOTE | 2018-02-08 11:43 | NUR ---
1120 ASSISTED UP TO BR, VOIDS QS. AMB WELL. DENIES LIGHT HEADEDINESS OR DIZZINESS. HAS EATEN CRACKERS AND DRANK WATER. DECLINES OFFER OF FOOD, STATES I JUST DONT WANT TO EAT JUST YET. HAS TAKEN PAIN MEDICATION FOR 4/10 PAIN, STATES I THINK THEY ARE STARTING TO WORK. WANTS TO GO HOME. GRANDDAUGHTER HERE TO TAKE HER HOME.
--- NOTE | 2018-02-08 11:46 | NUR ---
BULB DRAIN WAS SHOWN AND REVIEWED SEVERAL TIMES AND QUESTIONS ANSWERED. EDUCATION SHEETS ON DRAIN ALSO GIVEN.
--- NOTE | 2018-02-08 12:35 | NUR ---
PT IN FOR LAPCHOLE. SHE IS ALERT, ORIENTED AND SUPPORTED BY FAMILY. PT SEEMS SOMEWHAT FRAGILE, PLEASANT. PT REQUESTED PRAYER, WILL FOLLOW NEEDED
== END 2018-02-08 11:35 | disposition home or self-care (01) ==
LOC: DS 05:35
PROVIDERS: Colon & Rectal Surgery
PROC: BF03YZZ Plain Radiography of Gallbladder and Bile Ducts using Other Contrast (ICD-10-PCS; 2018-02-08)
PROC: 0FT44ZZ Resection of Gallbladder, Percutaneous Endoscopic Approach (ICD-10-PCS; principal; 2018-02-08 06:45)
DX: K80.10 Calculus of gallbladder with chronic cholecystitis without obstruction (principal); I12.9 Hypertensive chronic kidney disease with stage 1 through stage 4 chronic kidney disease, or unspecified chronic kidney disease; N18.3 Chronic kidney disease, stage 3 (moderate); K21.9 Gastro-esophageal reflux disease without esophagitis; E78.5 Hyperlipidemia, unspecified; E55.9 Vitamin D deficiency, unspecified; M10.9 Gout, unspecified; I63.9 Cerebral infarction, unspecified; Z88.8 Allergy status to other drugs, medicaments and biological substances; Z95.828 Presence of other vascular implants and grafts; Z79.2 Long term (current) use of antibiotics; Z79.82 Long term (current) use of aspirin; Z79.899 Other long term (current) drug therapy
CPT/HCPCS: 36415; 83735; J0690; J1100; J1644; J2250; J2405; J2704; J3010; J7120

== ENCOUNTER 2020-03-19 07:58 | Emergency (ER) | payer MEDICARE, OTHER ==
[~2020-03-19] VITALS: Ht 160 cm; Wt 68.0 kg
[~2020-03-19 07:58] MED LIST changes: +CEPHALEXIN500 MG PO; +CIPRO500 MG PO; +K-TAB ER20 MEQ PO; +NORCO 5-325 TA1 EACH PO; +PROMETHAZINE HC25 M1 PO; +PROMETHAZINE12.5 M1 PO; +ZOFRAN4 MG PO
--- OUTSIDE RECORDS SUMMARY | 2020-03-19 08:02 | XMS ---
PreManage Notification: ETHEL SANFORD Security Fixed Interest Dealer Events No recent Security Events currently on file CRITERIA MET - History of Sepsis Dx CARE PROVIDERS CRYSTAL HERRERA Physician Icu Registered Nurse 02/04/2018-Current PHONE: Unknown Name [facility] 12/23/2019-Current PHONE: [phone] Grady has no Care Guidelines for this patient. Care History Medical/Surgical 12/23/2019 [facility] - PATIENT IS [facility] ELIGIBLE, \T\middot;\T\nbsp; PLEASE REFER PATIENT TO [facility] FOR NON EMERGENT MEDICAL NEEDS. \T\middot;\T\nbsp; [facility] CAN SEE PATIENTS SAME DAY FOR APTS IF PATIENT CALLS FIRST THING IN THE MORNING. E.D. VISIT COUNT (12 MO.) 2 [facility] [place] TOTAL 2 NOTE: Visits indicate total known visits. ED/UCC VISIT TRACKING (12 MO.) 03/19/2020 07:59 [facility] [place] TYPE: Emergency COMPLAINT: - FALL 12/22/2019 04:54 [facility] [place] TYPE: Emergency COMPLAINT: - URINE PROBLEM DIAGNOSES: - Unspecified abdominal pain - Hypocalcemia - Essential (primary) hypertension - Urinary tract infection, site not specified - Personal history of nicotine dependence - Allergy status to other drugs, medicaments and biological substances INPATIENT VISIT TRACKING (12 MO.) No inpatient visits to display in this time frame [email or web address]
--- NOTE | 2020-03-21 14:11 | EKG ---
[facility] [address] [place] [address] Signed Normal sinus rhythm Possible Inferior infarct , age undetermined Abnormal ECG When compared with ECG of 22-DEC-2019 06:28, premature atrial complexes are no longer present Confirmed by PABLITO HOGAN MD ([id number]) on 03/21/2020 2:11:14 PM Electronically Signed By: PABLITO HOGAN MD 03/21/20 1411 PATIENT NAME: ETHEL SANFORD [place] Electrocardiogram DATE OF : 37 PHYSICIAN: PABLITO HOGAN MD REPORT #: [id number] REPORT IS CONFIDENTIAL AND NOT TO BE RELEASED WITHOUT AUTHORIZATION
== END 2020-03-19 14:14 | disposition home or self-care (01) ==
LOC: ED 07:58
DX: R55 Syncope and collapse (principal); E86.0 Dehydration; I12.9 Hypertensive chronic kidney disease with stage 1 through stage 4 chronic kidney disease, or unspecified chronic kidney disease; N18.9 Chronic kidney disease, unspecified; H69.91 Unspecified Eustachian tube disorder, right ear; Z87.891 Personal history of nicotine dependence; Z88.8 Allergy status to other drugs, medicaments and biological substances; Z79.899 Other long term (current) drug therapy; Z79.82 Long term (current) use of aspirin
CPT/HCPCS: 70450; 71045; 80048; 80053; 81001; 83735; 84484; 85025; 93005; 93010; 99284-25; J7030

== ENCOUNTER 2021-06-15 12:36 | Emergency (ER) | payer MEDICARE, OTHER ==
[~2021-06-15] VITALS: Ht 160 cm; Wt 68.0 kg
== END 2021-06-15 13:54 | disposition home or self-care (01) ==
LOC: ED 12:36
DX: U07.1 COVID-19 (principal); I10 Essential (primary) hypertension; Z85.43 Personal history of malignant neoplasm of ovary; Z85.41 Personal history of malignant neoplasm of cervix uteri; Z85.59 Personal history of malignant neoplasm of other urinary tract organ; Z87.891 Personal history of nicotine dependence; Z88.8 Allergy status to other drugs, medicaments and biological substances; Z79.899 Other long term (current) drug therapy; Z79.82 Long term (current) use of aspirin
CPT/HCPCS: 99283

== ENCOUNTER 2023-12-27 10:39 | Emergency (ER) | payer MEDICARE, OTHER ==
[~2023-12-27] VITALS: Ht 160 cm; Wt 63.4 kg
[2023-12-27] MEDS ORDERED: DIPHENOXYLATE/ATROPINE 1 EA TAB PO ONE (11:15)
[2023-12-27] MEDS ORDERED: SODIUM CHLORIDE 0.9% 1,000 ML IV ONE (11:15)
[2023-12-27 11:36] LABS: BASOPHILS 0.3 % (0-2); EOSINOPHILS 0.7 % (0-6); HEMATOCRIT 44.1 % (35.0-50.0); HEMOGLOBIN 14.8 g/dL (12.0-18.0); LYMPHOCYTES 21.9 % (24-44); MCH 29.1 (27-36); MCHC 33.7 g/dl (30-36); MCV 86.4 fl (81-99); MONOCYTES 11.5 % (0-12); NEUTROPHILS 65.6 % (39-80); PLATELET COUNT 272 K/uL (140-440); RDW 14.1 (10.5-15.0)
[2023-12-27 11:53] LABS: ALBUMIN 3.8 g/dL (3.4-5.0); ALBUMIN/GLOBULIN RATIO 0.78 (1.1-2.4); BUN/CREATININE RATIO 19.19 (6.0-28.6); CALCIUM 9.5 mg/dL (8.5-10.1); CREATININE, SERUM 2.24 mg/dL (0.55-1.02); PROTEIN, TOTAL 8.7 g/dL (6.4-8.2)
[2023-12-27 12:42] LABS: BILIRUBIN, URINE NEGATIVE (negative); BLOOD/HGB, URINE NEGATIVE (Negative); KETONE, URINE TRACE (Negative); LEUK ESTERASE, URINE TRACE (negative); NITRITE, URINE NEGATIVE (negative); PH, URINE 5.5 (5-7)
[2023-12-27 12:51] LABS: EPITHELIAL CELLS, URINE SQUAMOUS 2+ /lpf (0-1+); RED BLOOD CELLS, URINE 0-1 /hpf (0-5)
[2023-12-27 12:52] LABS: BACTERIA, URINE RARE /hpf (negative); CASTS, URINE HYALINE 2+ \\lpf; COLLECTION TYPE, URINE CLEAN CATCH; CRYSTALS, URINE NONE SEEN (0-1+); REFLEX CULTURE, URINE No (No)
[2023-12-27 13:32] VITALS: BP 128/66
== END 2023-12-27 13:34 | disposition home or self-care (01) ==
LOC: ED 10:39
PROVIDERS: Emergency Medicine
DX: R19.7 Diarrhea, unspecified (principal); I10 Essential (primary) hypertension; Z79.82 Long term (current) use of aspirin; Z79.899 Other long term (current) drug therapy; Z88.6 Allergy status to analgesic agent; Z88.8 Allergy status to other drugs, medicaments and biological substances; Z87.891 Personal history of nicotine dependence
CPT/HCPCS: 51701; 74176; 80053; 81001; 83690; 85025; 99284-25; J7030

== ENCOUNTER 2024-08-16 10:44 | Emergency (ER) | payer MEDICARE, OTHER ==
[~2024-08-16] VITALS: Ht 160 cm; Wt 63.8 kg
[2024-08-16 11:36] LABS: BASOPHILS 0.2 % (0-2); EOSINOPHILS 0.1 % (0-6); HEMATOCRIT 30.9 % (35.0-50.0); HEMOGLOBIN 10.5 g/dL (12.0-18.0); LYMPHOCYTES 6.8 % (24-44); MCH 29.2 (27-36); MCHC 33.9 g/dl (30-36); MCV 85.9 fl (81-99); MONOCYTES 5.8 % (0-12); NEUTROPHILS 87.1 % (39-80); PLATELET COUNT 360 K/uL (140-440); RDW 13.8 (10.5-15.0)
[2024-08-16 11:45] LABS: ALBUMIN 2.7 g/dL (3.4-5.0); ALBUMIN/GLOBULIN RATIO 0.52 (1.1-2.4); ANION GAP 16.1 (7-21); BILIRUBIN, TOTAL 1.3 mg/dL (0.2-1.0); CREATININE, SERUM 1.8 mg/dL (0.55-1.02); POTASSIUM 4.1 mmol/L (3.5-5.1); PROTEIN, TOTAL 7.9 g/dL (6.4-8.2)
[2024-08-16] MEDS ORDERED: SODIUM CHLORIDE 0.9% 1,000 ML IV PRN (16:00)
[2024-08-16 19:26] VITALS: BP 129/44
[2024-08-16] MEDS ORDERED: HYDROCODONE/ACETA 5/325 TAB PO ONE (19:30)
== END 2024-08-16 19:26 | disposition home or self-care (01) ==
LOC: ED 10:44
PROVIDERS: Emergency Medicine
DX: I74.3 Embolism and thrombosis of arteries of the lower extremities (principal); I10 Essential (primary) hypertension; Z87.891 Personal history of nicotine dependence; Z88.8 Allergy status to other drugs, medicaments and biological substances; Z79.82 Long term (current) use of aspirin; Z79.890 Hormone replacement therapy; Z79.899 Other long term (current) drug therapy
CPT/HCPCS: 36415; 75635; 80053; 85025; 93926; 93971; 99283-25; J7030; Q9967

== ENCOUNTER 2024-08-21 19:44 | Inpatient (IN) | payer MEDICARE, OTHER ==
[~2024-08-21] VITALS: Ht 160 cm; Wt 75.0 kg
[~2024-08-21 19:44] MED LIST changes: -DAILY VITAMIN1 EAC2 PO; +LEVOTHYROXINE112 MCG PO; -LEVOTHYROXINE88 MCG PO; +MAGNESIUM OXID400 M1 PO; -MAGNESIUM OXID400 MG PO; +MULTIPLE VITAM1 EAC1 PO
[2024-08-21 20:42] LABS: BASOPHILS 0.2 % (0-2); HEMATOCRIT 33.5 % (35.0-50.0); HEMOGLOBIN 11.3 g/dL (12.0-18.0); LYMPHOCYTES 9.3 % (24-44); MCH 28.8 (27-36); MCHC 33.7 g/dl (30-36); MCV 85.4 fl (81-99); MONOCYTES 13.5 % (0-12); PLATELET COUNT 261 K/uL (140-440); RBC 3.92 M/ul (4.3-5.7); RDW 14.1 (10.5-15.0)
[2024-08-21 20:55] LABS: INR 1.23 (0.80-1.30); PROTIME 14.8 Sec (11.2-14.2)
[2024-08-21 21:06] LABS: LACTIC ACID, BLOOD 2.6 mmol/L (0.4-2.0)
[2024-08-21 21:08] LABS: ALBUMIN 2.4 g/dL (3.4-5.0); ALBUMIN/GLOBULIN RATIO 0.44 (1.1-2.4); ANION GAP 12.8 (7-21); BUN/CREATININE RATIO 16.66 (6.0-28.6); CREATININE, SERUM 1.86 mg/dL (0.55-1.02); POTASSIUM 3.8 mmol/L (3.5-5.1); PROTEIN, TOTAL 7.8 g/dL (6.4-8.2); TSH, 3RD GENERATION 1.307 uIU/mL (0.358-3.740)
[2024-08-21 21:37] LABS: BILIRUBIN, URINE NEGATIVE (negative); BLOOD/HGB, URINE TRACE-I (Negative); KETONE, URINE NEGATIVE (Negative); LEUK ESTERASE, URINE NEGATIVE (negative); NITRITE, URINE NEGATIVE (negative)
[2024-08-21 21:43] LABS: EPITHELIAL CELLS, URINE SQUAMOUS 1+ /lpf (0-1+); RED BLOOD CELLS, URINE 0-1 /hpf (0-5)
[2024-08-21 21:44] LABS: BACTERIA, URINE RARE /hpf (negative); CASTS, URINE GRANULAR 2+ \\lpf; COLLECTION TYPE, URINE CLEAN CATCH; CRYSTALS, URINE NONE SEEN (0-1+); REFLEX CULTURE, URINE No (No)
[2024-08-21] MEDS ORDERED: SODIUM CHLORIDE 0.9% 1,000 ML IV ONE (21:45)
[2024-08-21] MEDS ORDERED: CEFTRIAXONE SODIUM 2 GM in SODIUM CHLORIDE 0.9% 100 ML IV ONE (21:45)
[2024-08-21 21:51] LABS: AMPHETAMINES, URINE NEGATIVE (NEGATIVE); BARBITURATES, URINE NEGATIVE (NEGATIVE); BENZODIAZEPINE, URINE NEGATIVE (NEGATIVE); BUPRENORPHINE, URINE NEGATIVE (NEGATIVE); CANNABINOID, URINE NEGATIVE (NEGATIVE); COCAINE, URINE NEGATIVE (NEGATIVE); ECSTASY, URINE NEGATIVE (NEGATIVE); FENTANYL, URINE NEGATIVE (NEGATIVE); METHADONE, URINE NEGATIVE (NEGATIVE); OPIATES, URINE NEGATIVE (NEGATIVE); OXYCODONE, URINE NEGATIVE (NEGATIVE); PHENCYCLIDINE, URINE NEGATIVE (NEGATIVE)
[2024-08-21] MEDS ORDERED: LINEZOLID 600 MG BAG IV ONE (23:45)
[2024-08-22] VITALS (10 sets, daily range): BP systolic 103–124; BP diastolic 42–48
[2024-08-22] MEDS ORDERED: ondansetron HCL 4 MG/2 ML VIAL IV PRN ×2 (00:30→11:30)
[2024-08-22] MEDS ORDERED: SODIUM CHLORIDE 0.9% 1,000 ML IV ONE (00:30)
[2024-08-22] MEDS ORDERED: ACETAMINOPHEN 325 MG TAB PO PRN ×2 (00:30→11:30)
[2024-08-22] MEDS ORDERED: MORPHINE SULFATE 4 MG/ML VIAL IV PRN (00:30)
--- NOTE | 2024-08-22 01:43 | NUR ---
RECEIVED ED REPORT, TRANSPORTED PT ON STRETCHER TO MED SURG ROOM 122. PT ACCOMPANIED BY GRANDCARISSA EARL, WHO HOLDS ON TO PT BELONGINGS. VITALS, ASSESSMENT, AND ORIENTATION TO FLOOR AND PLAN OF CARE. PT DENIES NEEDS AT THIS TIME. CALL LIGHT IN REACH
--- NOTE | 2024-08-22 04:33 | NUR ---
CALL LIGHT ANSWERED. PT STATED SHE NEEDED TO USE BATHROOM AND COULDNT USE PUREWICK. BOWL TOPPER AND PRIMARY RN 2PA PT TO BSC. PT ABLE TO VOID AND IS ASSISTED BACK TO BED. PT STATES NO FURTHER NEEDS FROM BOWL TOPPER AND CALL LIGHT WITHIN REAC. PRIMARY RN REMAINS IN ROOM.
--- NOTE | 2024-08-22 04:56 | NUR ---
ASSISTED PT TO BEDSIDE COMMODE 2 PERSON ASSIST. PT STILL DISORIENTED TO TIME, ABLE TO FOLLOW COMMANDS. SON IN LAW AT BEDSIDE. CALL LIGHT IN REACH
[2024-08-22 05:34] LABS: BASOPHILS 0.3 % (0-2); EOSINOPHILS 0.1 % (0-6); HEMATOCRIT 26.9 % (35.0-50.0); HEMOGLOBIN 9.3 g/dL (12.0-18.0); LYMPHOCYTES 13.5 % (24-44); MCH 29.1 (27-36); MCHC 34.4 g/dl (30-36); MCV 84.6 fl (81-99); MONOCYTES 11.7 % (0-12); NEUTROPHILS 74.4 % (39-80); PLATELET COUNT 225 K/uL (140-440); RBC 3.18 M/ul (4.3-5.7); RDW 14.5 (10.5-15.0)
[2024-08-22 05:52] LABS: ALBUMIN 1.8 g/dL (3.4-5.0); ALBUMIN/GLOBULIN RATIO 0.4 (1.1-2.4); ANION GAP 12.8 (7-21); BILIRUBIN, TOTAL 0.4 mg/dL (0.2-1.0); BUN/CREATININE RATIO 18.66 (6.0-28.6); CREATININE, SERUM 1.5 mg/dL (0.55-1.02); MAGNESIUM 1.7 mg/dL (1.8-2.4); POTASSIUM 3.8 mmol/L (3.5-5.1); PROTEIN, TOTAL 6.3 g/dL (6.4-8.2)
[2024-08-22] MEDS ORDERED: IBLOOD GLUCOSE TEST STRIP 1 EA TEST VI SCH ×2 (07:00→08:00)
[2024-08-22] MEDS ORDERED: LINEZOLID 600 MG BAG IV SCH ×2 (09:00→21:00)
--- NOTE | 2024-08-22 09:20 | NUR ---
Patient in bed eating breakfast, alert to self and place. Patient reports pain in right groin area, tylenol in use. Right groin/mons area is firm/warm to touch, scant dried blood noted to area. Patient's grandson at bedside, updated with plan of care. Bed alarm in place.
--- NOTE | 2024-08-22 09:40 | NUR ---
VISITED DURING SPIRITUAL CARE ROUNDS. PT APPEARED TO BE SLEEPING. DID NOT DISTURB. VISITED WITH GRANDSON IN ROOM. GRANDSON EXPRESSED SITUATIONALLY APPROPRIATE SENTIMENTS; NO IMMEDIATE NEEDS; DECLINED OFFICE MACHINES TEACHER VISIT ON PT'S BEHALF. TALEND DEVELOPER PROVIDED SUPPORTIVE PRESENCE, HOSPITALITY, PRAYER.
[2024-08-22] MEDS ORDERED: LASIX20 MG PO (10:07)
[2024-08-22] MEDS ORDERED: PLAVIX75 MG PO (10:07)
--- NOTE | 2024-08-22 11:18 | NUR ---
Patient awake in bed watching tv, no acute distress. Patient reports her pain level is a bit improved with tylenol admin. Patient denies needs. Call light within patient reach.
[2024-08-22] MEDS ORDERED: SODIUM CHLORIDE 0.9% 1,000 ML IV SCH (11:30)
[2024-08-22] MEDS ORDERED: PHARMACY RENAL DOSE ADJUSTMENT 1 DOSE MISC PO SCH (12:00)
--- NOTE | 2024-08-22 12:50 | NUR ---
In with pt and pt's primary RN to assist pt with clean up and transfer after BM on BSC. Pt with weak movement but was able to stand with 1-person assist using [facility] from [facility]. Pt back side cleaned up using wet wipes and warm towels, barrier cream applied to sacral area, noted some redness, blanchable. Pt assisted into bed where we finished cleansing the saul area. Noted the mons pubis was firm and raised in appearance. Noted a raised area that appeared to be hematoma-like in the right groin with some old blood and a scant amount of fresh blood. Pt denies any pain in this area. Scars noted on pt's lower abdomen as well. Pt states she had surgery "a while ago" but doesn't know when. 2- person method used with draw sheet to boost patient in bed, hob elevated to a position of comfort so the pt can eat lunch. Lunch tray placed in front of pt, warm blanket provided, side rails up x4, call light in reach. Pt denies further needs at this time. (while on bsc, pt had a large soft BM and voided about 200ml urine, with some incontinence of stool)
--- NOTE | 2024-08-22 13:00 | NUR ---
Spoke with Salma. She lives with her granddaughter Mateo, her baby, and spouse. Pt states she has not been feeling well and has not been able to walk for the last week. She has worked with PT and feels it would benefit her to go to a SNF for therapy. She is unsure where would like to go and asks I call her granddaughter Domitila. She declines a list of SNFS. Pt states she does not use any DME. She does not drive. She states she bought the mobil home they live in.
--- NOTE | 2024-08-22 13:23 | NUR ---
MED REC COMPLETE
[2024-08-22] MEDS ORDERED: MAGNESIUM CHLORIDE 64 MG TABCR PO ONE (15:15)
--- NOTE | 2024-08-22 15:19 | NUR ---
REFERRAL FOR SNF FAXED TO [facility].
--- NOTE | 2024-08-22 15:28 | NUR ---
UR CLINCAL REVIEW: 2MN ASUNCION, MEETS INPT FOR CELLULITIS MONITOR LABS, IV FLUIDS, IV ANTIBIOTICS MEDICARE INPT 08/22/24 @ 1124 ORDER MATCHES REG NO AUTH REQUIRED PER MEDICARE RULES DC TO SNF WHEN MEDICALLY CLEARED, 1-2 DAYS
[2024-08-22 15:33] LABS: BASOPHILS 0.8 % (0-2); EOSINOPHILS 0.4 % (0-6); HEMATOCRIT 28.1 % (35.0-50.0); HEMOGLOBIN 9.6 g/dL (12.0-18.0); LYMPHOCYTES 14.6 % (24-44); MCH 29.1 (27-36); MCHC 34.2 g/dl (30-36); MCV 85.1 fl (81-99); MONOCYTES 10.3 % (0-12); NEUTROPHILS 73.9 % (39-80); PLATELET COUNT 219 K/uL (140-440); RDW 14.1 (10.5-15.0)
[2024-08-22] MEDS ORDERED: levoFLOXacin 750 MG PIGGYBACK IV SCH ×2 (16:00)
--- NOTE | 2024-08-22 16:22 | NUR ---
PATIENT IN BED AT THIS TIME. THIS CONTROL ROOM OPERATOR AND LORENE GRAJEDA ASSISTED PATIENT TO BEDSIDE COMMODE AND THEN BACK TO BED. PATIENT WAS ALSO BOOSTED IN BED AT THIS TIME. CALL LIGHT WITHIN REACH, NO FURTHER NEEDS AT THIS TIME.
--- NOTE | 2024-08-22 18:05 | NUR ---
PATIENT IN BED AT THIS TIME. REAL TIME TRADER CHARTED VITALS AND I&O'S. CALL LIGHT WITHIN REACH, NO FURTHER NEEDS AT THIS TIME.
--- NOTE | 2024-08-22 18:16 | NUR ---
Patient in bed at this time, no distress. Patient denies any concerns at this time. HOB elevated. IV patent. Patient denies needs, call light within reach.
--- NOTE | 2024-08-22 19:10 | NUR ---
PATIENT WAS IN BED AT THIS TIME, LORENE GRAJEDA AND I ASSISTED PATIENT TO THE BEDSIDE COMMODE. THEN BACK TO BED, PULLED HER UP IN BED. KIMBER IN ROOM WITH PATIENT, CALL LIGHT WITH IN REACH AND NOTHING ELSE NEEDED AT THIS TIME.
--- NOTE | 2024-08-22 19:37 | NUR ---
RECEIVED REPORT. SWELLING ON MONS IS SLIGHTLY MORE PRONOUNCED TODAY THAN YESTERDAY, AND FEMORAL SITE WITH SMALL CLEAR DRAINAGE. PT ALERT WATCHING TV, GRANDDAUGHTER LIGIA IN ROOM. NO NEEDS PRESENTLY, CALL LIGHT IN REACH
[2024-08-22 20:21] LABS: BASOPHILS 0.3 % (0-2); EOSINOPHILS 0.9 % (0-6); HEMATOCRIT 27.8 % (35.0-50.0); HEMOGLOBIN 9.6 g/dL (12.0-18.0); LYMPHOCYTES 13.2 % (24-44); MCH 29.1 (27-36); MCHC 34.6 g/dl (30-36); MCV 84.1 fl (81-99); NEUTROPHILS 76.6 % (39-80); PLATELET COUNT 224 K/uL (140-440)
[2024-08-22] MEDS ORDERED: MELATONIN 3 MG TAB PO PRN (21:00)
--- NOTE | 2024-08-22 21:04 | NUR ---
PRIMARY RN MADE AWARE OF IV SITE INFILTRATION, NORMAL SALINE INFUSING. IV FLUIDS PAUSED AND PRIMARY RN IN ROOM TO DC IV SITE.
--- NOTE | 2024-08-22 21:05 | NUR ---
REMOVED IV D/T INFILTRATION. SWELLING APPROX 1.5INCHES X 2 INCHES, NONTENDER. AREA MARKED AND LIMB ELEVATED. NORMAL SALINE HAD BEEN INFUSING.
--- NOTE | 2024-08-22 21:06 | NUR ---
WELFARE ADVISER AND RN 2PA PT TO BSC. PT VOIDED AND ASSISTED BACK TO BED. OUTPUT MEASURED. PT STATES NO FURTHER NEEDS AT THIS TIME. RN REMAINS IN ROOM.
--- NOTE | 2024-08-22 21:15 | NUR ---
PT TRANSFERRED OUT TO [facility]. GIVEN REPORT TO RECEIVING [facility]. PT BELONGINGS TAKEN BY KIMBER STRONG.
--- NOTE | 2024-08-22 22:56 | EKG ---
[facility] [address] [place] [address] Signed Sinus rhythm with premature atrial complexes Otherwise normal ECG When compared with ECG of 19-MAR-2020 09:25, premature atrial complexes are now present Borderline criteria for Inferior infarct are no longer present Confirmed by Carlene Casey MD () on 08/22/2024 10:56:16 PM Electronically Signed By: CARLENE CASEY MD 08/22/24 2256 PATIENT NAME: ETHEL SANFORD Electrocardiogram DATE OF : 37 PHYSICIAN: CARLENE CASEY MD REPORT #: [id number] REPORT IS CONFIDENTIAL AND NOT TO BE RELEASED WITHOUT AUTHORIZATION
== END 2024-08-22 19:10 | disposition home or self-care (01) | DRG 314 ==
LOC: ED 19:44 → MS 19:45
PROVIDERS: Family Medicine; ADMIT Family Medicine; ATTEND Family Medicine
DX: T82.838A Hemorrhage due to vascular prosthetic devices, implants and grafts, initial encounter (principal); J18.9 Pneumonia, unspecified organism; L03.314 Cellulitis of groin; N17.9 Acute kidney failure, unspecified; E83.42 Hypomagnesemia; I10 Essential (primary) hypertension; E89.0 Postprocedural hypothyroidism; Y83.8 Other surgical procedures as the cause of abnormal reaction of the patient, or of later complication, without mention of misadventure at the time of the procedure; Z90.710 Acquired absence of both cervix and uterus; Z90.721 Acquired absence of ovaries, unilateral; Z85.118 Personal history of other malignant neoplasm of bronchus and lung; Z85.41 Personal history of malignant neoplasm of cervix uteri; Z98.890 Other specified postprocedural states; Z87.891 Personal history of nicotine dependence; Z88.8 Allergy status to other drugs, medicaments and biological substances; Z79.82 Long term (current) use of aspirin; Z79.899 Other long term (current) drug therapy; Z79.890 Hormone replacement therapy
CPT/HCPCS: 36415; 70450; 71045; 76857; 80053; 80307; 81001; 82140; 83036; 83605; 83735; 84443; 85025; 85610; 93005; 93010; 96361; 96365; 96366; 96367; 96376; 97161; 97165; 99285-25; A9270; G0378; J0696; J1956; J2020; J7030

== ENCOUNTER 2024-09-16 12:12 | Emergency (ER) | payer MEDICARE, OTHER ==
[~2024-09-16] VITALS: Ht 160 cm; Wt 62.5 kg
[~2024-09-16 12:12] MED LIST changes: +LASIX20 MG PO; +PLAVIX75 MG PO
[2024-09-16] MEDS ORDERED: PANTOPRAZOLE SO40 MG PO (12:20)
[2024-09-16] MEDS ORDERED: UNASYN 3 GM VIAL3 GM INJ (12:21)
[2024-09-16] MEDS ORDERED: FISH OIL 1,001000 MG PO (12:21)
[2024-09-16] MEDS ORDERED: LOPERAMIDE2 M1 PO (12:21)
[2024-09-16] MEDS ORDERED: ACETAMINOPHEN325 M1 PO (12:21)
[2024-09-16] MEDS ORDERED: MILK OF MA400 MG/5 M PO (12:22)
[2024-09-16] MEDS ORDERED: PANTOPRAZOLE SODIUM 40 MG/10 ML VIAL IV SCH (12:30)
[2024-09-16 13:29] LABS: EOSINOPHILS 3.3 % (0-6); HEMATOCRIT 24.6 % (35.0-50.0); HEMOGLOBIN 8.5 g/dL (12.0-18.0); LYMPHOCYTES 29.2 % (24-44); MCH 29.2 (27-36); MCHC 34.4 g/dl (30-36); MONOCYTES 10.9 % (0-12); NEUTROPHILS 55.6 % (39-80); PLATELET COUNT 313 K/uL (140-440); RBC 2.89 M/ul (4.3-5.7); RDW 18.4 (10.5-15.0)
[2024-09-16 13:46] LABS: ALBUMIN 2.3 g/dL (3.4-5.0); ALBUMIN/GLOBULIN RATIO 0.48 (1.1-2.4); ANION GAP 11.6 (7-21); BILIRUBIN, TOTAL 0.6 mg/dL (0.2-1.0); BUN/CREATININE RATIO 10.79 (6.0-28.6); CALCIUM 8.3 mg/dL (8.5-10.1); CREATININE, SERUM 1.39 mg/dL (0.55-1.02); POTASSIUM 3.6 mmol/L (3.5-5.1); PROTEIN, TOTAL 7.1 g/dL (6.4-8.2)
[2024-09-16 14:07] LABS: ABO A; RH POSITIVE
[2024-09-16 14:07] LABS: INR 1.14 (0.80-1.30)
[2024-09-16 14:08] LABS: ANTIBODY SCREEN NEGATIVE
[2024-09-16 14:51] LABS: BASOPHILS 0.9 % (0-2); EOSINOPHILS 2.8 % (0-6); HEMATOCRIT 26.5 % (35.0-50.0); LYMPHOCYTES 29.2 % (24-44); MCH 29.1 (27-36); MCV 85.6 fl (81-99); MONOCYTES 10.4 % (0-12); NEUTROPHILS 56.7 % (39-80); PLATELET COUNT 306 K/uL (140-440); RBC 3.09 M/ul (4.3-5.7); RDW 18.7 (10.5-15.0)
[2024-09-16 16:15] VITALS: BP 151/57
== END 2024-09-16 16:15 | disposition home or self-care (01) ==
LOC: ED 12:12
PROVIDERS: Emergency Medicine
DX: K92.2 Gastrointestinal hemorrhage, unspecified (principal); I10 Essential (primary) hypertension; Z79.899 Other long term (current) drug therapy; Z79.82 Long term (current) use of aspirin; Z79.02 Long term (current) use of antithrombotics/antiplatelets; Z88.1 Allergy status to other antibiotic agents; Z88.8 Allergy status to other drugs, medicaments and biological substances; Z87.891 Personal history of nicotine dependence
CPT/HCPCS: 36415; 80053; 85025; 85610; 85730; 86850; 86900; 86901; 96374; 99285-25; J2470

== ENCOUNTER 2024-10-23 21:27 | Emergency (ER) | payer MEDICARE, OTHER ==
[~2024-10-23] VITALS: Ht 160 cm; Wt 54.6 kg
[~2024-10-23 21:27] MED LIST changes: +ACETAMINOPHEN325 M1 PO; +FISH OIL 1,001000 MG PO; +LOPERAMIDE2 M1 PO; +MAGOX 400400 MG PO; +MILK OF MA400 MG/5 M PO; +ONDANSETRON HCL4 MG PO; +PANTOPRAZOLE SO40 MG PO; +PROBIOTIC1 EAC1 PO; +PROTONIX20 MG PO; +UNASYN 3 GM VIAL3 GM INJ
[2024-10-23 22:28] LABS: BASOPHILS 0.3 % (0.1-1.2); EOSINOPHILS 1.1 % (0.7-5.8); HEMATOCRIT 34.3 % (34.1-44.9); HEMOGLOBIN 10.9 g/dL (11.2-15.7); LYMPHOCYTES 16.7 % (19.3-51.7); MCH 29.1 PG (25.6-32.2); MCHC 31.8 g/dL (32.2-35.5); MCV 91.5 fL (79.4-94.8); MONOCYTES 7.7 % (4.7-12.5); NEUTROPHILS 73.8 % (34.0-71.1); PLATELET COUNT 254 K/uL (182-369); RBC 3.75 M/uL (3.93-5.22)
[2024-10-23 22:38] LABS: ALBUMIN 2.9 g/dL (3.4-5.0); ALBUMIN/GLOBULIN RATIO 0.6 (1.1-2.4); ANION GAP 13.6 (7-21); BILIRUBIN, TOTAL 0.7 mg/dL (0.2-1.0); BUN/CREATININE RATIO 16.49 (6.0-28.6); CALCIUM 8.8 mg/dL (8.5-10.1); CREATININE, SERUM 1.94 mg/dL (0.55-1.02); POTASSIUM 3.6 mmol/L (3.5-5.1); PROTEIN, TOTAL 7.7 g/dL (6.4-8.2)
[2024-10-23] MEDS ORDERED: SODIUM CHLORIDE 0.9% 1,000 ML IV SCH (23:30)
[2024-10-23] MEDS ORDERED: VANCOCIN HCL125 MG PO (23:39)
[2024-10-23] MEDS ORDERED: VANCOMYCIN HCL 125 MG CAP PO ONE (23:45)
[2024-10-24 01:05] VITALS: BP 124/47
== END 2024-10-24 01:07 | disposition home or self-care (01) ==
LOC: ED 21:27
PROVIDERS: Emergency Medicine
DX: A04.72 Enterocolitis due to Clostridium difficile, not specified as recurrent (principal); S30.811A Abrasion of abdominal wall, initial encounter; I10 Essential (primary) hypertension; Z87.891 Personal history of nicotine dependence; Z79.2 Long term (current) use of antibiotics; Z79.899 Other long term (current) drug therapy; Z90.710 Acquired absence of both cervix and uterus; Z90.722 Acquired absence of ovaries, bilateral; Z88.8 Allergy status to other drugs, medicaments and biological substances; Z79.82 Long term (current) use of aspirin; X58.XXXA Exposure to other specified factors, initial encounter
CPT/HCPCS: 36415; 80053; 85025; 87324; 96360; 99284-25; J7030

== ENCOUNTER 2024-10-29 17:27 | Inpatient (IN) | payer MEDICARE, OTHER ==
[~2024-10-29] VITALS: Ht 160 cm; Wt 60.4 kg
[~2024-10-29 17:27] MED LIST changes: +VANCOCIN HCL125 MG PO
[2024-10-29] MEDS ORDERED: SODIUM CHLORIDE 0.9% 1,000 ML IV ONE (18:00)
[2024-10-29 18:07] LABS: BASOPHILS 0.4 % (0.1-1.2); EOSINOPHILS 0.7 % (0.7-5.8); HEMATOCRIT 40.5 % (34.1-44.9); HEMOGLOBIN 13.2 g/dL (11.2-15.7); LYMPHOCYTES 29.2 % (19.3-51.7); MCH 28.7 PG (25.6-32.2); MCHC 32.6 g/dL (32.2-35.5); MONOCYTES 6.4 % (4.7-12.5); NEUTROPHILS 62.5 % (34.0-71.1); PLATELET COUNT 412 K/uL (182-369)
[2024-10-29] MEDS ORDERED: OMEPRAZOLE20 MG PO (18:13)
[2024-10-29 18:20] LABS: ALBUMIN 3.3 g/dL (3.4-5.0); ALBUMIN/GLOBULIN RATIO 0.6 (1.1-2.4); BILIRUBIN, TOTAL 0.6 mg/dL (0.2-1.0); BUN/CREATININE RATIO 17.87 (6.0-28.6); CALCIUM 8.6 mg/dL (8.5-10.1); CREATININE, SERUM 1.79 mg/dL (0.55-1.02); PROTEIN, TOTAL 8.8 g/dL (6.4-8.2)
[2024-10-29 18:45] LABS: ABO A; ANTIBODY SCREEN NEGATIVE; RH POSITIVE
[2024-10-29] MEDS ORDERED: LIDOCAINE 2% VISCOUS 6 ML SYR TOP ONE (19:15)
[2024-10-29] MEDS ORDERED: ondansetron HCL 4 MG/2 ML VIAL IV ONE (19:15)
[2024-10-29] MEDS ORDERED: metroNIDAZOLE/SODIUM CHLORIDE 500 MG/100 ML PIGGYBACK IV ONE (19:15)
[2024-10-29 19:40] LABS: BILIRUBIN, URINE NEGATIVE (negative); BLOOD/HGB, URINE NEGATIVE (Negative); KETONE, URINE NEGATIVE (Negative); LEUK ESTERASE, URINE NEGATIVE (negative); NITRITE, URINE NEGATIVE (negative)
[2024-10-29] MEDS ORDERED: ENOXAPARIN SODIUM 30 MG/0.3 ML SYR SUB-Q SCH (20:15)
[2024-10-29] MEDS ORDERED: MORPHINE SULFATE 4 MG/ML VIAL IV PRN (20:15)
[2024-10-29] MEDS ORDERED: LACTATED RINGER'S 1,000 ML IV SCH (20:30)
--- NOTE | 2024-10-29 21:30 | NUR ---
patient arrived to the unit via strecher with this RN and warehouse technician. patient transferred from stretcher to bed via slide sheet. patient granddaughter Domitila at bedside. patient states she lives with her granddaughter and that she is her primary care clinician. patient vital signs taken and WNL. patient states she uses a walker at home to ambulate, which is present on admission. patient is alert and oriented x4, follows commands appropriately. patient on room air, tolerating well. patient paz intact, and draining clear yellow urine. NG intact and on LIWS. patient abdomen tender and firm. BT active. patient IV sites WNL. patient noted to have redness on her sacrum area. patient denies any nausea or pain at this time. this RN in room to complete admission.
[2024-10-29] MEDS ORDERED: FAMOTIDINE 20 MG/ 2 ML VIAL IV SCH (21:34)
[2024-10-29 21:40] VITALS: BP 136/65
[2024-10-29] MEDS ORDERED: ondansetron HCL 4 MG/2 ML VIAL IV PRN (21:45)
[2024-10-29 22:00] VITALS: BP 122/57
[2024-10-29] MEDS ORDERED: metroNIDAZOLE/SODIUM CHLORIDE 500 MG/100 ML PIGGYBACK IV SCH (22:00)
--- NOTE | 2024-10-29 22:30 | NUR ---
patient granddaughter Domitila left for the night and took all of the patient belongings. patient granddaughter and patient updated on the plan of care for the night. all questions answered. no needs at this time. call light in reach.
[2024-10-29 23:00] VITALS: BP 138/68
--- NOTE | 2024-10-29 23:45 | NUR ---
PATIENT RESTING IN BED WITH EYES CLOSED, RR 21. PATIENT HOB >30 DEGREES. PATIENT NG TUBE REMAINS ON LIWS. PATIENT HAS NO NEEDS AT THIS TIME. CALL LIGHT IN REACH.
[2024-10-30] VITALS (17 sets, daily range): BP systolic 115–148; BP diastolic 44–72
--- NOTE | 2024-10-30 01:15 | NUR ---
patient uses call light stating her stomach feels full and that the NG is not working right. patient assessed, NG tube flushed with 40cc tap water. NG tube WNL and continues to be on LIWS. patient paz cath intact draining clear yellow urine. patient has no further needs at this time. call light in reach.
--- NOTE | 2024-10-30 02:28 | NUR ---
patient resting in bed with eyes closed, RR 20. patient vital signs stable. no distress noted. patient has no needs at this time. call light in reach.
[2024-10-30] MEDS ORDERED: SUCRALFATE 1 GM TAB PT SCH (04:00)
--- NOTE | 2024-10-30 04:02 | NUR ---
PATIENT NG TUBE OUTPUT NOTED TO HAVE DECENT AMOUNT OF BLOOD. PATIENT COMPLAINS OF ABDOMINAL CRAMPING AND A FEELING OF FULLNESS. PATIENT NOTED TO BE SLIGHTLY ANXIOUS DURING THIS TIME. DR ROMERO CALLED AND UPDATED ON FINDINGS. NEW ORDER RECEIVED PER EMAR, VERIFIED VIA REPEAT BACK METHOD. PATIENT VITAL SIGNS WNL AT THIS TIME.
--- NOTE | 2024-10-30 05:15 | NUR ---
PATIENT RESTING IN BED WITH EYES CLOSED. NO NEW BLOOD DRAINAGE NOTED FROM NG TUBE. NG REMAINS ON LIWS. PATIENT VITAL SIGNS STABLE. PATIENT CONTINUES TO HAVE IVF INFUSING PER EMAR, IV SITE WNL. PATIENT HAS NO NEEDS AT THIS TIME. CALL LIGHT IN REACH.
[2024-10-30 05:49] LABS: BASOPHILS 0.3 % (0.1-1.2); EOSINOPHILS 0 % (0.7-5.8); HEMATOCRIT 32.9 % (34.1-44.9); HEMOGLOBIN 10.6 g/dL (11.2-15.7); LYMPHOCYTES 12.8 % (19.3-51.7); MCH 28.5 PG (25.6-32.2); MCHC 32.2 g/dL (32.2-35.5); MCV 88.4 fL (79.4-94.8); MONOCYTES 4.2 % (4.7-12.5); NEUTROPHILS 82.3 % (34.0-71.1); PLATELET COUNT 296 K/uL (182-369); RBC 3.72 M/uL (3.93-5.22)
[2024-10-30 06:09] LABS: ALBUMIN 2.4 g/dL (3.4-5.0); ALBUMIN/GLOBULIN RATIO 0.55 (1.1-2.4); BILIRUBIN, TOTAL 0.5 mg/dL (0.2-1.0); BUN/CREATININE RATIO 21.47 (6.0-28.6); CALCIUM 7.1 mg/dL (8.5-10.1); CREATININE, SERUM 1.49 mg/dL (0.55-1.02); PROTEIN, TOTAL 6.8 g/dL (6.4-8.2)
[2024-10-30 06:11] LABS: MAGNESIUM 0.9 mg/dL (1.8-2.4)
--- NOTE | 2024-10-30 06:20 | NUR ---
PATIENT NG TUBE DRAINAGE NOTED TO BE DARK GREEN BILE COLOR. PATIENT RESTING IN BED WITH EYES CLOSED. NO DISTRESS NOTED. NG TUBE CONTINUES TO BE ON LIWS. PATIENT HAS CALL LIGHT IN REACH.
--- NOTE | 2024-10-30 06:25 | NUR ---
UPDATE PROVIDED TO ON LAB RESULTS
[2024-10-30] MEDS ORDERED: MAGNESIUM SULFATE 2 GM/50 ML BAG IV ONE (06:30)
[2024-10-30] MEDS ORDERED: CEFTRIAXONE SODIUM 1 GM in SODIUM CHLORIDE 0.9% 100 ML IV SCH (07:45)
[2024-10-30] MEDS ORDERED: AZITHROMYCIN 500 MG in DEXTROSE 5% 250 ML IV SCH (07:45)
--- NOTE | 2024-10-30 08:00 | NUR ---
PT AWAKE, NG TO LIWS AND HAS GREEN IN COLOR DRAINAGE NOTED. MCDONALD DRAINING CLEAR YELLOW URINE. REMAINS ON CONTACT PERCAUTINS.
--- NOTE | 2024-10-30 08:51 | NUR ---
PATIENT IN BED AT THIS TIME. APARTMENT MAINTENANCE TECHNICIAN CHARTED HOURLY ROUNDS. CALL LIGHT WITHIN REACH, NO FURTHER NEEDS AT THIS TIME.
--- NOTE | 2024-10-30 09:00 | NUR ---
XRAY PRESENT NG TUBE CLAMPED FOR TEST AND WILL REMAIN CLAMP TILL XRAY IS COMPLETE.
[2024-10-30] MEDS ORDERED: VANCOMYCIN HCL 500 MG VIAL PR SCH (10:00)
--- NOTE | 2024-10-30 10:30 | NUR ---
VANCO RENTATION EMENA GIVEN AT THIS TIME, PT WAS ABLE TO HOLD SOME AND THEN HAD GREEN IN COLOR BM, PT CLEANED UP AND CATH CARE COMPLETED ALSO AT THIS TIME. 10:45 XRAY COMPLETED AND CASEMANAGEMENT INTO SEE PT ALSO AT THIS TIME. GRANDDAUGHTER IS PRESENT.
--- NOTE | 2024-10-30 11:17 | NUR ---
PERSONAL HEALTH INFORMATION REVIEWED. PATIENT SITTING UP IN BED. GRANDDAUGHTER SITTING AT BEDSIDE. PATIENT LIVES WITH GRANDDAUGHTER AT HER HOME. 3 STEPS INTO THE HOME DENIES ANY DIFFCULTY DOING THEM. PATIENT USES A 4 WHEEL WALKER. PATIENT DOES NOT USE OXYGEN OR A CPAP. PATIENT DOES NOT DRIVE. PATIENT DENIES ANY DIFFCULTY PAYING UTILITIES OR OBTAIN FOOD. PATIENT GRANDDAUGHTER STATES "SHE WILL NOT GO BACK TO [facility]." PATIENT TO GO HOME WITH GRANDDAUGHTER WHEN MEDICALLY CLEARED. NO FUTHER CM NEEDS AT THIS TIME.
--- NOTE | 2024-10-30 11:30 | NUR ---
XRAY CALLED AND IT IS OKAY TO TURN ON NG TUBE. NG TUBE BACK TO LIWS AT THIS TIME. PT HAS HAD LIQUID STOOL X 3 SO FAR THIS SHIFT. GREEN IN COLOR AND SOFT AND LIQUID. PT IS ABLE TO STAND AND MOVE ABOUT THE BEDSIDE WHILE CLEANING HER UP. HAS BEEN PHYSICIAN OBSTETRICIAN LIGHT MANY TIMES IN THE PAST 5 MINUTES. FUSSING WITH NG TUBE AND MCDONALD.
[2024-10-30] MEDS ORDERED: MAGNESIUM SULFATE 2 GM/50 ML BAG IV SCH (11:45)
[2024-10-30] MEDS ORDERED: PHARMACY RENAL DOSE ADJUSTMENT 1 DOSE MISC PO SCH (12:00)
--- NOTE | 2024-10-30 12:47 | NUR ---
PATIENT IN BED AT THIS TIME. NAILHEAD PUNCHER ASSISTED PATIENT WITHI BERNARD CARE AND ASSISTED PATIENT IN GETTING OFF THE BED COBB. PATIENT HAD BOWEL MOVEMENT, NEW CHUX WAS PROVIDED BY NAILHEAD PUNCHER. CALL LIGHT WITHIN REACH, NO FURTHER NEEDS AT THIS TIME.
--- NOTE | 2024-10-30 12:54 | NUR ---
pt contioues to fuss about ng tube. redirect to leave tube alone and that it is working at this time. then wants to know when it will come out.
--- NOTE | 2024-10-30 13:38 | NUR ---
pt inc lg amt of gil, attends changed and i/o charted saul care. call light in reach.
--- NOTE | 2024-10-30 14:11 | NUR ---
PATIENT IN BED AT THIS TIME. ORTHOPEDIC NURSE PRACTITIONER ASSISTED PATIENT TO BEDSIDE COMMODE AND THEN BACK TO BED. NEW BRIEF PROVIDED TO PATIENT. CALL LIGHT WITHIN REACH, NO FURTHER NEEDS AT THIS TIME.
--- NOTE | 2024-10-30 14:26 | NUR ---
NOTIFIED OF PATIENT MANY BOWEL MOVEMENTS AND NEW ORDERS RECEIVED. NG DC'D, CLEAR LIQUIDS AND STOP CARFATE. PT UP TO BEDSIDE COMMODE AND HAD BM. PT TOLERATED NG REMOVEAL WELL, THEN BACK TO BED. EXPLAINED ABOUT CLEAR LIQUIDS AND TO GO SLOW WITH THEM.
--- NOTE | 2024-10-30 15:26 | NUR ---
PT INCONTENT OF LIQUID STOOL IN ATTENDS, PT CLEANED UP AND IS WORKING OF HER CUP OF WATER. DR EARL NOTIFIED OF NG OUT AND NEW ORDERS RECEIVED.
[2024-10-30] MEDS ORDERED: VANCOMYCIN HCL 125 MG CAP PO SCH (17:00)
--- NOTE | 2024-10-30 17:18 | NUR ---
MED REC COMPLETE
[2024-10-30] MEDS ORDERED: ASPIRIN 81 MG TABEC PO SCH (18:01)
[2024-10-30] MEDS ORDERED: CLOPIDOGREL BISULFATE 75 MG TAB PO SCH (18:01)
--- NOTE | 2024-10-30 18:04 | NUR ---
PATIENT IN BED AT THIS TIME. DEMAND MANAGER ASSISTED PATIENT TO BEDSIDE COMMODE AND THEN BACK TO BED. DEMAND MANAGER PROVIDED PATIENT WITH NEW BRIEF AND NEW GOWN. CALL LIGHT WITHIN REACH, NO FURTHER NEEDS AT THIS TIME.
--- NOTE | 2024-10-30 19:15 | NUR ---
REPORT GIVEN TO GENERAL II FARMWORKER ALL QUESTIONS ANSWERED.
--- NOTE | 2024-10-30 19:47 | NUR ---
PATIENT CALLED NURSES STATION, THIS RN INTO PATIENT ROOM, PATIENT IS PULLING BACK BLANKETS AND TRYING TO UNTANGLE TUBES AND MONITOR WIRES, PATIENT SAID, "I HAVE A MESS, I THINK I WAS SLEEPING AND WOKE UP IN A MESS." PATIENT IS NOTED TO BE INCONTINENT OF STOOL AT THIS TIME. PATIENT ONE PERSON ASSIST UP TO BEDSIDE COMMODE, PRODUCED SMALL LIQUID STOOL IN BSC. MCDONALD CARE PROVIDED. ASSESSMENT COMPLETE.
--- NOTE | 2024-10-30 20:54 | NUR ---
PATIENT HAD LIQUID STOOL INCONTINENT. BARRIER CREAM APPLIED TO BUTTOCKS FOR SKIIN PROTECTION, MCDONALD CARE PROVIDED. SAT AT BEDSIDE WITH PATIENT TO VISIT. SHE VERBALIZED FAMILY DYNAMICS WITH HER TWO GRANDDAUGHTERS. SHE TALKED ABOUT HER PARENTS AND BEING RAISED WITH HER GREAT GRANDMOTHER.
--- NOTE | 2024-10-30 22:29 | NUR ---
PATIENT ALERT WATCHING TV. SHE REPORTS NO PAIN, AND HAS NO REQUESTS AT THIS TIME.
[2024-10-31] VITALS (8 sets, daily range): BP systolic 119–156; BP diastolic 42–61
--- NOTE | 2024-10-31 01:32 | NUR ---
PATIENT RESTING QUIELTY IN BED, EYES CLOSED, RESPIRATIONS 16/MIN, V/S STABLE ON CCU MONITOR. NO DISTRESS NOTED, PATIENT ALERT TO RN AT BEDSIDE, ASSESSMENT COMPLETE, NO NEW CONCERNS.
[2024-10-31 05:26] LABS: BASOPHILS 0.3 % (0.1-1.2); HEMATOCRIT 29.7 % (34.1-44.9); HEMOGLOBIN 9.3 g/dL (11.2-15.7); LYMPHOCYTES 22.1 % (19.3-51.7); MCH 28.5 PG (25.6-32.2); MCHC 31.3 g/dL (32.2-35.5); MCV 91.1 fL (79.4-94.8); MONOCYTES 6.6 % (4.7-12.5); NEUTROPHILS 68.6 % (34.0-71.1); PLATELET COUNT 250 K/uL (182-369); RBC 3.26 M/uL (3.93-5.22)
--- NOTE | 2024-10-31 05:31 | NUR ---
PATIENT RESTING IN BED EYES CLOSED, ALERT TO RN AT BEDSIDE FOR AM ASSESSMENT. PATIENT IS COOPERATIVE WITH CARES. NO REQUESTS AT THIS TIME.
[2024-10-31 05:36] LABS: ANION GAP 11.3 (7-21); BUN/CREATININE RATIO 18.65 (6.0-28.6); CALCIUM 7.6 mg/dL (8.5-10.1); CREATININE, SERUM 1.34 mg/dL (0.55-1.02); MAGNESIUM 2.3 mg/dL (1.8-2.4); POTASSIUM 3.3 mmol/L (3.5-5.1)
--- NOTE | 2024-10-31 06:28 | NUR ---
PATIENT IS ALERT AND ORIENTED THIS AM. SHE HAS REPORTED NO PAIN OVER SHIFT, V/S HAVE BEEN STABLE, SHE REMAINS ON ROOM AIR, AFEBRILE. SHE HAS HAD SIX LIQUID GREEN BM OVER NIGHT INCONTINENT IN DEPEND BRIEFS, BARRIER CREAM APPLIED AFTER EVERY BM WELL MCDONALD CARE. PATIENT HAS BEEN UP TO BSC WITH ONE PERSON ASSIST TWICE AFTER INCONTINENCES. SHE HAS SLEPT APPOXIMATELY 6 HOURS OVER RUG RECEIVING CLERK. URINE OUT IS BORDER LINE QUANTITY INSUFFICIENT WITH ONLY 285 ML OUT OVER LAST 10 HOURS, THAT IS 25ML/HOUR.
--- NOTE | 2024-10-31 07:28 | NUR ---
UR CLINICAL REVIEW: 2 MN FOR VERSALUS-PER GLOBAL ENGINEERING MANAGER MEETS INPT FOR SBO WITH NEED FOR NG MEDICARE OBS TO INPT 10/29/24 @ 2046 ORDER MATCHES REG NO AUTH REQUIRED PER MEDICARE GUIDELINES DISCHARGE TO HOME WHEN STABLE
[2024-10-31] MEDS ORDERED: POTASSIUM CHLORIDE 10 MEQ TABCR PO ONE (07:30)
--- NOTE | 2024-10-31 08:30 | NUR ---
PT HAD LIQUID BM AND THEN UP TO BS COMMODE, AFTER THIS PT IN CHAIR AND CALL LIGHT INPLACE, DR EARL INTO SEE HER. NEW ORDERS RECEIVED. MCDONALD CATHETER REMOVED ALSO AT THIS TIME. LINE CHANGED AND PT IS EATTING CLEAR LIQUID DIET
[2024-10-31] MEDS ORDERED: ELECTROLTYTE REPLACEMEMT CCU 1 EACH EA PO/IV SCH (09:00)
[2024-10-31] MEDS ORDERED: LEVOTHYROXINE SODIUM 112 MCG TAB PO SCH (09:00)
[2024-10-31] MEDS ORDERED: ELECTROLTYTE REPLACEMEMT CCU 1 EACH EA MISC SCH (09:00)
[2024-10-31] MEDS ORDERED: ENOXAPARIN SODIUM 30 MG/0.3 ML SYR SUB-Q SCH (09:00)
--- NOTE | 2024-10-31 09:43 | NUR ---
PT UP TO BEDSIDE COMMODE HAD LIQUID BM AND THEN BACK TO THE CHAIR, BATH COMPLETED.
--- NOTE | 2024-10-31 11:37 | NUR ---
PT HAS BEEN UP IN THE CHAIR SINCE BREAKFAST AND REMAIN IN THE CHAIR AT THIS TIME. WAS ASLEEP WHEN SOFTWARE TOOLS BUILD ENGINEER ENTERED THE ROOM. ASSESSMENT COMPLETED AND WARM BLANKETS GIVEN TO THE PT. CALL LIGHT WITHIN REACH.
--- NOTE | 2024-10-31 11:51 | NUR ---
PT UP TO THE BS COMMODE VOIDED AND HAD BM AT THIS TIME.
--- NOTE | 2024-10-31 12:34 | NUR ---
PT UP TO BS COMMODE, VOIDED AND STOOL NOTED, FRESH ATTENDS INPLACE AND GRAND DAUGHTER LIGIA IS HER. SHOWED HER THE PICTURE DR GUZMAN SENT ME AND EXPLAINED WHAT IS HAPPENDING TO THE PT BOWEL.
--- NOTE | 2024-10-31 13:35 | NUR ---
pt back in bed watching tv at this time.
--- NOTE | 2024-10-31 14:07 | EKG ---
[facility] [address] [facility] [place] [address] Signed Normal sinus rhythm Prolonged QT Abnormal ECG When compared with ECG of 29-SEP-2024 08:43, No significant change was found Confirmed by Modesto Estevez MD ([id number]) on 10/31/2024 2:06:55 PM Electronically Signed By: MODESTO ESTEVEZ MD 10/31/24 1407 PATIENT NAME: JULIANO SANFORDGA VILLELATONY Electrocardiogram DATE OF : 37 PHYSICIAN: MODESTO ESTEVEZ MD REPORT #: [id number] REPORT IS CONFIDENTIAL AND NOT TO BE RELEASED WITHOUT AUTHORIZATION
--- NOTE | 2024-10-31 16:00 | NUR ---
PT UP TO THE BEDSIDE COMMODE, VOIDED AND STOOL NOTED. THEN PT AMBULATED ACROSS THE ROOM TO THE CHAIR. GRAND SON INTO VISIT ALSO AT THIS TIME. DR GUZMAN INTO DEPARTMENT AND PT TO TRANSFER TO THE M/S FLOOR AND TO ROOM 112.
--- NOTE | 2024-10-31 17:19 | NUR ---
PT UP TO BS COMMODE VOIDED AND HAD BM. BACK TO CHAIR. REPORT GIVEN TO LONA VERBAL AND ALL QUESTIONS ANSWERED. PT ONLY HAD A FWW AND IT WENT TO ROOM 112 WITH PT. SHE DID NOT HAVE ANY PERSONAL CLOTHING. PT TRANSPORTED VIA CHAIR TO ROOM 112 ON M/S.
--- NOTE | 2024-10-31 17:30 | NUR ---
REPORT REC'D FROM LORENE BATISTA. PT TRANSFERRED FROM CCU TO ROOM #112 VIA CHAIR. CHAIR RECLINED AND LOCKED. PT ORIENTED TO ROOM AND CALL MCCRAY, PROVIDED EVENING MEAL. PT ALERT, ORIENTED X2, FORGETFUL. IV INFUSING TO R FA 20G RL @ 50ML/HR. PT INSTRUCTED TO CALL FOR ASSISTANCE.
--- NOTE | 2024-10-31 18:24 | NUR ---
PT UP TO BSC FOR LIQUID BM. PLACED IN CHAIR, CALL MCCRAY IN REACH, BED IN LOW POSITION AND LOCKED. BED ALARM ACTIVATED.
--- NOTE | 2024-10-31 19:25 | NUR ---
PT ENDORSED TO TRE. PT HAD LIQUID BM WITH INCONTINENCE OF URINE X 5. BARRIER CREAM APPLIED AFTER EACH BM.
--- NOTE | 2024-10-31 19:37 | NUR ---
REPORT RECEIVED FROM DAY SHIFT RN. PT RESTING IN BED. PT DENIED ANY PAIN. SAFETY PRECAUTIONS MAINTAINED. CALL LIGHT WITHIN REACH. WILL CONTINUE TO MONITOR.
[2024-10-31] MEDS ORDERED: FAMOTIDINE 20 MG TAB PO SCH (21:00)
[2024-10-31] MEDS ORDERED: FAMOTIDINE 20 MG/ 2 ML VIAL IV SCH (21:00)
--- NOTE | 2024-10-31 21:07 | NUR ---
WHANAU SUPPORT WORKER OBTAINED VITALS AND I&O. PT STATES NO NEEDS AT THIS TIME. CALL LIGHT WITHIN REACH.
--- NOTE | 2024-10-31 21:15 | NUR ---
PT ASSESSED AND MEDICATIONS GIVEN. VSS. PT UP X1 ASSIST TO BSC. MULTIPLE BM'S NOTED. PT VOIDING WELL. IVF INFUSING PER ORDER. PO ABX GIVEN. SAFETY PRECAUTIONS MAINTAINED. CALL LIGHT WITHIN REACH. WILL CONTINUE TO MONITOR.
--- NOTE | 2024-10-31 23:24 | NUR ---
CALL LIGHT ANSWERED. PT NEEDED TO USE BATHROOM. LEAD CARPENTER SBA TO BSC. PT VOIDED AND HAD BM. PT ASSISTED WITH CLEAN BRIEF AND ASSISTED BACK TO BED. PT STATES NO FURTHER NEEDS AT THIS TIME. CALL LIGHT WITHIN REACH.
[2024-11-01] VITALS (11 sets, daily range): BP systolic 125–168; BP diastolic 41–52
--- NOTE | 2024-11-01 02:01 | NUR ---
CONCRETE MIXING TRUCK DRIVER OBTAINED VITALS AND I&O. PT STATES NO NEEDS AT THIS TIME. CALL LIGHT WITHIN REACH.
--- NOTE | 2024-11-01 05:34 | NUR ---
SHUTTLE VAN DRIVER OBTAINED VITALS, NO NEW I&O AT THIS TIME. PT STATES NO NEEDS AT THIS TIME. CALL LIGHT WITHIN REACH.
--- NOTE | 2024-11-01 06:09 | NUR ---
CALL LIGHT ANSWERED. PT NEEDED TO USE BATHROOM. COUNTERINTELLIGENCE SPECIALIST SBA TO BSC. PT VOIDED AND HAD BM. PT ASSISTED BACK TO BED. PT STATED THAT HER GOWN WAS WET. COUNTERINTELLIGENCE SPECIALIST NOTED THAT IV WAS LEAKING AT IV SITE. RN NOTIFED AND PT ASSISTED WITH PUTTING ON CLEAN GOWN. NO FURTHER NEEDS STATED AT THIS TIME. CALL LIGHT WITHIN REACH.
--- NOTE | 2024-11-01 06:17 | NUR ---
PT RESTED SOME THROUGHOUT THE SHIFT. VSS. PT UP SBA TO BSC MULTIPLE TIME THROUGHOUT SHIFT. PT CONTINUES TO HAVE WATERY DIARRHEA. PT DENIED ANY PAIN. IVF INFUSING PER ORDER. SAFETY PRECAUTIONS MAINTAINED. CALL LIGHT WITHIN REACH. WILL CONTINUE TO MONITOR.
--- NOTE | 2024-11-01 07:05 | NUR ---
Pt report received from LORENE Cadena. Pt is resting supine in bed, eyes closed, breathing is regular, even, and non-labored. Side rails up, call light in reach. IVF running at 50ml/hr. White board updated.
--- NOTE | 2024-11-01 08:21 | NUR ---
PATIENT IN CHAIR AT THIS TIME. REHABILITATION COUNSELOR ASSISTED PATIENT TO CHAIR AND PROVIDED FRESH LINENS. CALL LIGHT WITHIN REACH, NO FURTHER NEEDS AT THIS TIME.
--- NOTE | 2024-11-01 09:33 | NUR ---
PATIENT IN CHAIR AT THIS TIME. FOOD EQUIPMENT SERVICE TECHNICIAN CHARTED VITALS AND I&O'S. CALL LIGHT WITHIN REACH, NO FURTHER NEEDS AT THIS TIME.
--- NOTE | 2024-11-01 11:07 | NUR ---
PATIENT NEEDED ASSISTANCE BACK TO BED, SUPPLY CHAIN PLANNER GOT FRESH ICE WATER, AND A WARM BLANKET. CALL LIGHT WITH IN REACH AND NOTHING ELSE NEEDED AT THIS TIME.
[2024-11-01 12:17] LABS: BASOPHILS 0.3 % (0.1-1.2); EOSINOPHILS 1.8 % (0.7-5.8); HEMATOCRIT 29.6 % (34.1-44.9); HEMOGLOBIN 9.5 g/dL (11.2-15.7); MCH 28.7 PG (25.6-32.2); MCHC 32.1 g/dL (32.2-35.5); MCV 89.4 fL (79.4-94.8); MONOCYTES 5.1 % (4.7-12.5); NEUTROPHILS 62.5 % (34.0-71.1); PLATELET COUNT 246 K/uL (182-369); RBC 3.31 M/uL (3.93-5.22)
[2024-11-01 12:27] LABS: ANION GAP 13.1 (7-21); BUN/CREATININE RATIO 18.62 (6.0-28.6); CALCIUM 8.2 mg/dL (8.5-10.1); CREATININE, SERUM 1.02 mg/dL (0.55-1.02); MAGNESIUM 1.8 mg/dL (1.8-2.4); POTASSIUM 4.1 mmol/L (3.5-5.1)
--- NOTE | 2024-11-01 14:06 | NUR ---
PATIENT IN BED AT THIS TIME. INORGANIC CHEMICAL TECHNICIAN CHARTED VITALS AND I&O'S. INORGANIC CHEMICAL TECHNICIAN OFFERED PATIENT A SHOWER, SHE WANTS OMNE AFTER DINNER. CALL LIGHT WITHN REACH, NO FURTHER NEEDS AT THIS TIME.
--- NOTE | 2024-11-01 16:10 | NUR ---
Patient awake in bed, alert and oriented x3, no acute distress. Patient reports she has no pain and or needs. Personal supplies and call light within reach.
--- NOTE | 2024-11-01 16:37 | NUR ---
PATIENT IN BED AT THIS TIME. WIRE PULLER CHARTED HOURLY ROUNDS. CALL LIGHT WITHIN REACH, NO FURTHER NEEDS AT THIS TIME.
--- NOTE | 2024-11-01 17:30 | NUR ---
PATIENT IN BED AT THIS TIME. THIS PROJECT ADMINISTRATIVE ASSISTANT ASSISTED PATIENT TO BEDSIDE COMMODE AND THEN BACK TO BED. CALL LIGHT WITHIN REACH, NO FURTHER NEEDS.
--- NOTE | 2024-11-01 18:18 | NUR ---
PATIENT IN BED AT THIS TIME. GENERATOR ASSEMBLER ASSISTED PATIENT WITH SHOWER. CALL LIGHT WITHIN REACH, NO FURTHER NEEDS.
--- NOTE | 2024-11-01 20:05 | NUR ---
USED CALL LIGHT, UP TO BSC, VOIDED AND WAS INCONTINENT OF SEMILIQUID MUCOID BM. DOES NOT DO OWN BERNARD CARE. LEATHERY LIKE BUTTOCKS AREA, SKIN CARE DONE. ON ROOM AIR. IVF INFUSING LAC. BACK TO BED, 1PA TOLERATED WELL. ON ROOM AIR. COOP WITH ASSESSMENTS. LUNGS CLEAR LUPPER W CRACKLES, NO SOB NOTED OR STATED
--- NOTE | 2024-11-01 20:32 | NUR ---
PATIENT IS LAYING IN BED. PATIENT BRUSHED HER TEETH. PT WAS ASSISTED TO BED SIDE COMODE. CALL LIGHT IN REACH AND NO FURTHER NEEDS AT THIS TIME.
--- NOTE | 2024-11-01 21:30 | NUR ---
UP TO BSC, INC OF MUCOID LIKE BM, CLEAN ATTEDNS GIVEN, SKIN CARE. BACK TO BED, TOLERATED WELL
[2024-11-02] VITALS (11 sets, daily range): BP systolic 143–174; BP diastolic 50–77
--- NOTE | 2024-11-02 00:47 | NUR ---
Used call light, up to BSC, voided and was incontinent of semiliquid mucoid like bm's. Continues on enteric contact isolation precautions. needs help cleaning, IVF infusing w/o problems. Back to bed, tolerated well
--- NOTE | 2024-11-02 01:42 | NUR ---
Resting, eyes closed, no s/sx distress, on room air. IVF infusing w/o problems
--- NOTE | 2024-11-02 02:37 | NUR ---
PATIENT LAYING IN BED. VITAL SIGNS AND I&OS WERE DONE. PATIENTS CALL LIGHT IN REACH AND NO FURTHER NEEDS AT THIS TIME.
--- NOTE | 2024-11-02 02:54 | NUR ---
PATIENT PUSHED THE CALL LIGHT TO USE THE BSC. PATIENT WAS ASSISTED BACK TO BED AND BERNARD CARE WAS DONE. CHUX PAD WAS CHANGED. CALL LIGHT IN REACH AND NO FURTHER NEEDS AT THIS TIME.
--- NOTE | 2024-11-02 03:17 | NUR ---
Resting, no s/sx distress, on room air. call light and fluids at bedside. Continues on enteric contact isolation
--- NOTE | 2024-11-02 06:58 | NUR ---
resting, eyes closed, uses BSC, voiding and has had numerous semiliquid mucoid like bms. unable to do own pericare. IVF infusing w/o problems
--- NOTE | 2024-11-02 07:30 | NUR ---
PT RESTING EYES CLOSED AT TIME OF SHIFT REPORT, LEFT UNDISTURBED. CALL LIGHT AND FRESH H20 AT BEDSIDE
--- NOTE | 2024-11-02 07:57 | NUR ---
RESPONDED TO PT CALL LIGHT. PATIENT UP TO BEDSIDE COMMODE. VOIDED 300ML URINE/LIQUID BM. PULL UP BRIEFS REPLACED ALONG WITH CHUCKS PAD. PATIENT DENIES ANY FURTHER NEEDS. CALL LIGHT WITHIN REACH.
--- NOTE | 2024-11-02 08:31 | NUR ---
PT DENIES APPETITE FOR BREAKFAST BUT DOES ACCEPT OFFER OF ENSURE. OTHER ITEMS OFFERED WELL PT DECLINES.
--- NOTE | 2024-11-02 10:07 | NUR ---
PT EATS VERY LITTLE BREAKFAST AND DRINKS ENSURE. RESTING IN BED EYES CLOSED AT THIS TIME
--- NOTE | 2024-11-02 10:36 | NUR ---
PT REPORTED SHE WAS FEELING SICK TO HER STOMACH - I SAID I WOULD LET HER NURSE KNOW, PT HAS COLD WATER AND CALL LIGHT IS WITHIN REACH.
--- NOTE | 2024-11-02 10:42 | NUR ---
PT USED THE COMMODE, REPORTED FEELING SICK TO HER STOMACH - TOLD DR HE CAME INTO THE ROOM - ALSO TOLD NURSE. MOVED FROM BED TO COMMODE AND BACK WITHOUT PAIN OR DIZZINESS. PT BACK LAYING IN BED, CLEAN BRIEF AND CLEAN GRAY UNDER PT. CALL LIGHT WITHIN REACH.
--- NOTE | 2024-11-02 11:01 | NUR ---
PT TREATED FOR C/O NAUSEA, WILL TRY TO GET HER TO THE CHAIR A BIT LATER. SHE JUST WANTS TO REST AT THIS TIME
--- NOTE | 2024-11-02 12:05 | NUR ---
PT UP WITH STAFF DOES ORAL AND OTHER PERSONAL CARES. DECLINES SITTING IN THE CHAIR PREFERS THE COMFORT OF THE BED. CALL LIGHT IN REACH
--- NOTE | 2024-11-02 14:29 | NUR ---
PT ON COMMODE WHEN I ENTERED THE ROOM. AIDED PT TO RETURN TO BED. PT IN CHAIR FOR LUNCH. USED BARRIAR CREAM ON PT'S BOTTOM AFTER WIPING. PT REPORTED FEELING SICK TO HER STOMACH - I REPORTED THIS TO HER NURSE. CLEANED ROOM, CALL LIGHT WITHIN REACH. ROOM PICKED UP AND COMMODE CLEANED. PT REPORTED NEEDING NOTHING ELSE AT THIS TIME. PT WATCHING TV.
--- NOTE | 2024-11-02 15:02 | NUR ---
PT RESTING EYES CLOSED
--- NOTE | 2024-11-02 19:17 | NUR ---
PT LAYING IN BED WATCHING TV, AWAKE AND ALERT. PT REPORTS HEARTBURN, I REPORTED TO THE NURSE. GOT PT FRESH ICE WATER. CALL LIGHT WITHIN REACH. PT SAID SHE DID NOT NEED ANYTHING ELSE AT THIS TIME.
--- NOTE | 2024-11-02 20:00 | NUR ---
1PA PATIENT UP TO BEDSIDE COMMODE THEN UP TO CHAIR PER PATIENT'S REQUEST. BERNARD CARE ASSISTED. VOIDED UNMEASURED MIXED WITH SOME BLACK COLORED SOFT STOOLS. PATIENT DENIES FURTHER NEEDS. CALL LIGHT AND SIDE TABLE WITHIN REACH.
--- NOTE | 2024-11-02 20:25 | NUR ---
awake, alert to self, place and situation at this time. unaware of date. quiet, flat affect. On room air, lungs clear bilat. IVF infusing LFA w/o problems. Up to BSC, was incontinent of small amount of semiliquid mucoid bm. unable to do own care, clean attends in place. bruised areas all over chest, arms healing, leathery like buttocks area no changes. fresh water and call light at hands reach. Follows instructions, Denies c/o pain
[2024-11-02] MEDS ORDERED: ENOXAPARIN SODIUM 30 MG/0.3 ML SYR SUB-Q SCH (21:00)
--- NOTE | 2024-11-03 00:52 | NUR ---
Resting, eyes closed, on room air, no s/sx distress. Continues on enteric contact isolation precautions
--- NOTE | 2024-11-03 02:42 | NUR ---
Resting, eyes closed, no resp distress. repositions self in bed
--- NOTE | 2024-11-03 04:14 | NUR ---
Resting, eyes closed, IVf infusing, no s/sx distress
[2024-11-03 05:08] VITALS: BP 145/54
[2024-11-03 05:27] LABS: BASOPHILS 0.5 % (0.1-1.2); BASOPHILS, ABSOLUTE 0.03 K/uL (0.01-0.08); EOSINOPHILS 3.5 % (0.7-5.8); EOSINOPHILS, ABSOLUTE 0.21 K/uL (0.04-0.36); HEMATOCRIT 30.2 % (34.1-44.9); HEMOGLOBIN 9.9 g/dL (11.2-15.7); LYMPHOCYTES 32.7 % (19.3-51.7); LYMPHOCYTES, ABSOLUTE 1.96 K/uL (1.18-3.74); MCH 28.8 PG (25.6-32.2); MCHC 32.8 g/dL (32.2-35.5); MCV 87.8 fL (79.4-94.8); MONOCYTES 6.3 % (4.7-12.5); MONOCYTES, ABSOLUTE 0.38 K/uL (0.24-0.86); NEUTROPHILS 56.7 % (34.0-71.1); NEUTROPHILS, ABSOLUTE 3.39 K/uL (1.56-6.13); PLATELET COUNT 249 K/uL (182-369); RBC 3.44 M/uL (3.93-5.22)
[2024-11-03 05:30] VITALS: BP 145/54
[2024-11-03 05:43] LABS: BUN/CREATININE RATIO 13.88 (6.0-28.6); CALCIUM 8.2 mg/dL (8.5-10.1); CREATININE, SERUM 1.08 mg/dL (0.55-1.02)
--- NOTE | 2024-11-03 07:17 | NUR ---
PT ALERT AND INTERACTIVE AT TIME OF SHIFT REPORT. AGREES SHE IS COMFORTABLE AND WITHOUT NEED WATCHING TV. FRESH H20 TO BEDSIDE CALL LIGHT IN REACH
--- NOTE | 2024-11-03 09:05 | NUR ---
PT SITS UP ON THE EDGE OF THE BED FOR MORNING ENSURE REFUSES OFFER OF YOGURT OR OTHER APPROPRIATE ITEMS. DENIES DISCOMFORT OR NEEDS
[2024-11-03 09:27] VITALS: BP 121/61
--- NOTE | 2024-11-03 09:37 | NUR ---
PT RESTING IN BED WATCHING TV DECLINES UP TO THE CHAIR STATING IT'S COLD AND SHE IS COMFORTABLE, AGREES SHE WILL GET UP LATER. PT HAS BEEN OUT OF BED TO EAT AND TOILET THIS SHIFT. CALL LIGHT AND FRESH H20 AT BEDSIDE
[2024-11-03 10:18] VITALS: BP 121/61
--- NOTE | 2024-11-03 10:30 | NUR ---
Spoke with Salma. She cont. to live iwth her niece, Domitila. She would like to go home with Domitila whenever she can be medically released.
--- NOTE | 2024-11-03 12:05 | NUR ---
DR ROMERO IN TO SEE PT PLANS FOR DC DISCUSSED. PT UP ON THE EDGE OF THE BED NOW FOR NOON MEAL DENIES NEEDS OF
[2024-11-03 13:01] VITALS: BP 149/57
--- NOTE | 2024-11-03 15:07 | NUR ---
PT RETURNS TO RESTING SUPINE AFTER SITTING ON EDGE OF THE BED FOR A TIME. STATES SHE IS ANXIOUS TO GO HOME WAITING FOR DR ROMERO TO RETURN
--- NOTE | 2024-11-03 16:52 | NUR ---
DR ROMERO IN TO SEE PT STATES SHE CAN GO HOME.
--- NOTE | 2024-11-03 17:17 | NUR ---
PT FAMILY ARRIVE PT IS DRESSED TO GO HOME. CONTACTED DR ROMERO HE STATES HE WILL WRITE ORDERS SOON
[2024-11-03] MEDS ORDERED: LOPERAMIDE2 M1 PO (17:33)
== END 2024-11-03 17:45 | disposition home or self-care (01) | DRG 388 ==
LOC: ED 17:27 → CCU 20:51 → MS 10-31 16:29 → CCU 10-31 16:43 → MS 10-31 17:15
PROVIDERS: Emergency Medicine; ADMIT Surgery; ATTEND Surgery
PROC: 0D9670Z Drainage of Stomach with Drainage Device, Via Natural or Artificial Opening (ICD-10-PCS; principal; 2024-10-29)
DX: K56.609 Unspecified intestinal obstruction, unspecified as to partial versus complete obstruction (principal); J18.9 Pneumonia, unspecified organism; K92.2 Gastrointestinal hemorrhage, unspecified; A04.71 Enterocolitis due to Clostridium difficile, recurrent; C17.9 Malignant neoplasm of small intestine, unspecified; I10 Essential (primary) hypertension; F03.90 Unspecified dementia, unspecified severity, without behavioral disturbance, psychotic disturbance, mood disturbance, and anxiety; E03.9 Hypothyroidism, unspecified; E83.42 Hypomagnesemia; Z85.43 Personal history of malignant neoplasm of ovary; Z85.118 Personal history of other malignant neoplasm of bronchus and lung; Z85.41 Personal history of malignant neoplasm of cervix uteri; Z90.710 Acquired absence of both cervix and uterus; Z90.721 Acquired absence of ovaries, unilateral; Z90.49 Acquired absence of other specified parts of digestive tract; Z87.891 Personal history of nicotine dependence; Z90.89 Acquired absence of other organs; Z98.890 Other specified postprocedural states; Z88.8 Allergy status to other drugs, medicaments and biological substances; Z79.82 Long term (current) use of aspirin; Z79.899 Other long term (current) drug therapy; Z79.890 Hormone replacement therapy; Z92.3 Personal history of irradiation; Z95.5 Presence of coronary angioplasty implant and graft; Z95.820 Peripheral vascular angioplasty status with implants and grafts; Z86.16 Personal history of COVID-19
CPT/HCPCS: 36415; 71045; 71275; 74174; 74250; 80048; 80053; 81003; 83690; 83735; 84484; 85025; 86850; 86900; 86901; 93005; 93010; A4311; A9270; J0456; J0696; J1650; J2405; J3370; J3475; J7030; J7060; J7121; Q9967

== ENCOUNTER 2024-12-01 09:11 | Emergency (ER) | payer MEDICARE, OTHER ==
[~2024-12-01] VITALS: Ht 160 cm; Wt 61.7 kg
[2024-12-01] MEDS ORDERED: SODIUM CHLORIDE 0.9% 500 ML IV ONE (09:30)
[2024-12-01 09:34] LABS: BASOPHILS 0.6 % (0.1-1.2); EOSINOPHILS 1.9 % (0.7-5.8); LYMPHOCYTES 23.1 % (19.3-51.7); MCH 27.8 PG (25.6-32.2); MCHC 32.7 g/dL (32.2-35.5); MCV 85.1 fL (79.4-94.8); MONOCYTES 6.4 % (4.7-12.5); NEUTROPHILS 67.7 % (34.0-71.1); RBC 4.03 M/uL (3.93-5.22)
[2024-12-01 09:50] LABS: ALT (SGPT) 17.0 U/L (14-59); AST (SGOT) 24.0 U/L (15-37); GLOMERULAR FILTRATION RATE,EST 37.0 mL/min (>60); PROTEIN, TOTAL 7.9 g/dL (6.4-8.2); UREA NITROGEN 19.0 mg/dL (7-18)
[2024-12-01] MEDS ORDERED: SODIUM CHLORIDE 0.9% 1,000 ML IV PRN (10:15)
[2024-12-01] MEDS ORDERED: MAGNESIUM SULFATE 2 GM/50 ML BAG IV ONE ×2 (10:15)
[2024-12-01 10:37] LABS: BLOOD/HGB, URINE TRACE-I (Negative); KETONE, URINE NEGATIVE (Negative); LEUK ESTERASE, URINE NEGATIVE (negative); NITRITE, URINE NEGATIVE (negative)
[2024-12-01 10:43] LABS: BACTERIA, URINE NONE SEEN /hpf (negative); CASTS, URINE NONE SEEN \\lpf; CRYSTALS, URINE NONE SEEN (0-1+); EPITHELIAL CELLS, URINE SQUAMOUS 1+ /lpf (0-1+); REFLEX CULTURE, URINE No (No)
[2024-12-01 14:40] VITALS: BP 136/63
[2024-12-02 09:50] LABS: CALCIUM IONIZED PH 7.4 0.87 mmol/L (1.09-1.30); CALCIUM,IONIZED SERUM 0.84 mmol/L (1.09-1.30)
== END 2024-12-01 14:40 | disposition home or self-care (01) ==
LOC: ED 09:11
PROVIDERS: Emergency Medicine
DX: R19.7 Diarrhea, unspecified (principal); I10 Essential (primary) hypertension; Z79.82 Long term (current) use of aspirin; Z79.02 Long term (current) use of antithrombotics/antiplatelets; Z79.899 Other long term (current) drug therapy; Z88.1 Allergy status to other antibiotic agents; Z88.8 Allergy status to other drugs, medicaments and biological substances; Z87.891 Personal history of nicotine dependence
CPT/HCPCS: 36415; 74177; 80053; 81001; 83735; 85025; 96361; 96365; 96366; 99284-25; J3475; J7030; J7040; Q9967

== ENCOUNTER 2025-02-11 14:07 | Emergency (ER) | payer MEDICARE, OTHER ==
[~2025-02-11] VITALS: Ht 160 cm; Wt 63.8 kg
[2025-02-11 14:54] LABS: BASOPHILS 0.3 % (0.1-1.2); EOSINOPHILS 2.2 % (0.7-5.8); LYMPHOCYTES 22.1 % (19.3-51.7); MCH 27.8 PG (25.6-32.2); MCHC 32.0 g/dL (32.2-35.5); MCV 86.9 fL (79.4-94.8); MONOCYTES 9.1 % (4.7-12.5); NEUTROPHILS 66.0 % (34.0-71.1); RBC 3.74 M/uL (3.93-5.22)
[2025-02-11 15:11] LABS: ALT (SGPT) 15.0 U/L (14-59); AST (SGOT) 22.0 U/L (15-37); GLOMERULAR FILTRATION RATE,EST 41.0 mL/min (>60); PROTEIN, TOTAL 7.0 g/dL (6.4-8.2); UREA NITROGEN 35.0 mg/dL (7-18)
[2025-02-11] MEDS ORDERED: MAGNESIUM SULFATE 2 GM/50 ML BAG IV ONE (15:15)
[2025-02-11] MEDS ORDERED: POTASSIUM CHLORIDE 10 MEQ TABCR PO ONE (15:30)
[2025-02-11] MEDS ORDERED: Calcium Gluconate in NS 1,000 MG/50 ML BAG IV ONE (15:30)
--- NOTE | 2025-02-11 16:29 | EKG ---
[facility] [address] [facility] [place], [place] [address] Signed Normal sinus rhythm Normal ECG When compared with ECG of 29-OCT-2024 17:50, No significant change was found Confirmed by PENNY MCCRAY MD ([id number]) on 02/11/2025 4:29:04 PM Electronically Signed By: PENNY MCCRAY 02/11/25 1629 PATIENT NAME: ETHEL SANFORD Electrocardiogram DATE OF : 37 PHYSICIAN: PENNY MCCRAY REPORT #: [id number] REPORT IS CONFIDENTIAL AND NOT TO BE RELEASED WITHOUT AUTHORIZATION
[2025-02-11 18:27] VITALS: BP 103/66
== END 2025-02-11 18:29 | disposition home or self-care (01) ==
LOC: ED 14:07
PROVIDERS: Emergency Medicine
DX: E83.42 Hypomagnesemia (principal); E83.51 Hypocalcemia; E87.6 Hypokalemia; D64.9 Anemia, unspecified; I10 Essential (primary) hypertension; E03.9 Hypothyroidism, unspecified; F03.90 Unspecified dementia, unspecified severity, without behavioral disturbance, psychotic disturbance, mood disturbance, and anxiety; Z87.891 Personal history of nicotine dependence; Z88.8 Allergy status to other drugs, medicaments and biological substances; Z88.6 Allergy status to analgesic agent; Z79.890 Hormone replacement therapy; Z79.02 Long term (current) use of antithrombotics/antiplatelets; Z79.82 Long term (current) use of aspirin; Z79.899 Other long term (current) drug therapy
CPT/HCPCS: 36415; 80053; 83735; 85025; 93005; 93010; 96365; 96366; 96368; 99283-25; A9270; J3475

== ENCOUNTER 2025-02-24 08:25 | Emergency (ER) | payer MEDICARE, OTHER ==
[~2025-02-24] VITALS: Ht 160 cm; Wt 63.8 kg
[2025-02-24] MEDS ORDERED: DENTA 5000 PLUS51 GM (08:41)
[2025-02-24] MEDS ORDERED: CHOLESTYRAMINE378 GM PO (08:42)
[2025-02-24] MEDS ORDERED: MAGNESIUM100 MG PO (08:43)
[2025-02-24] MEDS ORDERED: PSYLLIUM SEED480 GM PO (08:43)
[2025-02-24 08:51] LABS: BASOPHILS 0.7 % (0.1-1.2); EOSINOPHILS 2.6 % (0.7-5.8); LYMPHOCYTES 25.7 % (19.3-51.7); MCH 27.5 PG (25.6-32.2); MCHC 31.7 g/dL (32.2-35.5); MCV 86.7 fL (79.4-94.8); MONOCYTES 7.8 % (4.7-12.5); NEUTROPHILS 62.9 % (34.0-71.1); RBC 4.22 M/uL (3.93-5.22)
[2025-02-24 09:11] LABS: ALT (SGPT) 14.0 U/L (14-59); AST (SGOT) 17.0 U/L (15-37); GLOMERULAR FILTRATION RATE,EST 39.0 mL/min (>60); PROTEIN, TOTAL 7.9 g/dL (6.4-8.2); UREA NITROGEN 31.0 mg/dL (7-18)
[2025-02-24] MEDS ORDERED: ACETAMINOPHEN 325 MG TAB PO ONE (09:30)
[2025-02-24 09:52] LABS: BLOOD/HGB, URINE NEGATIVE (Negative); KETONE, URINE NEGATIVE (Negative); LEUK ESTERASE, URINE TRACE (negative); NITRITE, URINE NEGATIVE (negative)
[2025-02-24 10:02] LABS: BACTERIA, URINE NONE SEEN /hpf (negative); CASTS, URINE NONE SEEN \\lpf; CRYSTALS, URINE NONE SEEN (0-1+); REFLEX CULTURE, URINE No (No)
[2025-02-24 10:42] VITALS: BP 146/59
--- NOTE | 2025-02-24 15:09 | EKG ---
[facility] [address] [facility] [place], [place] [address] Signed Normal sinus rhythm Normal ECG When compared with ECG of 11-FEB-2025 14:46, No significant change was found Confirmed by PENNY MCCRAY MD ([id number]) on 02/24/2025 3:09:26 PM Electronically Signed By: PENNY MCCRAY 02/24/25 1509 PATIENT NAME: ETHEL SANFORD Electrocardiogram DATE OF : 37 PHYSICIAN: PENNY MCCRAY REPORT #: [id number] REPORT IS CONFIDENTIAL AND NOT TO BE RELEASED WITHOUT AUTHORIZATION
== END 2025-02-24 10:42 | disposition home or self-care (01) ==
LOC: ED 08:25
PROVIDERS: Emergency Medicine
DX: R07.9 Chest pain, unspecified (principal); I10 Essential (primary) hypertension; Z79.02 Long term (current) use of antithrombotics/antiplatelets; Z79.82 Long term (current) use of aspirin; Z79.899 Other long term (current) drug therapy; Z88.1 Allergy status to other antibiotic agents; Z88.8 Allergy status to other drugs, medicaments and biological substances; Z87.891 Personal history of nicotine dependence
CPT/HCPCS: 36415; 71045; 80053; 81001; 83735; 84484; 85025; 93005; 93010; 99285-25; A9270